=== PATIENT | female | born 1965 | race Caucasian/White ===

== ENCOUNTER 2017-10-16 12:10 | Emergency (ER) | payer MEDICAID ==
[~2017-10-16] VITALS: Ht 165.1 cm; Wt 136.1 kg
[~2017-10-16 12:10] MED LIST: FENO160T8 PO; GABA300C10 PO; GLIM4TAB42 PO; INSLANTI SC; LEVEMIR SC; MONT10TA23 PO; PIOG30TA37 OR; ROPI0.5T18 PO; [UNRECOGNIZED DRUG - OTHER]
[2017-10-16 14:38] VITALS: BP 151/80
== END 2017-10-16 16:12 | disposition home or self-care (01) ==
LOC: ER 12:10
DX: M79.642 Pain in left hand (principal); K21.9 Gastro-esophageal reflux disease without esophagitis; E78.5 Hyperlipidemia, unspecified; I10 Essential (primary) hypertension; E11.9 Type 2 diabetes mellitus without complications; J45.909 Unspecified asthma, uncomplicated; I25.10 Atherosclerotic heart disease of native coronary artery without angina pectoris; E66.01 Morbid (severe) obesity due to excess calories; Z68.42 Body mass index [BMI] 45.0-49.9, adult; Z90.49 Acquired absence of other specified parts of digestive tract; W01.0XXA Fall on same level from slipping, tripping and stumbling without subsequent striking against object, initial encounter; Y93.89 Activity, other specified; Y92.89 Other specified places as the place of occurrence of the external cause; Y99.8 Other external cause status
CPT/HCPCS: 73130

== ENCOUNTER 2018-04-19 14:46 | Emergency (ER) | payer MEDICAID ==
[~2018-04-19] VITALS: Ht 165.1 cm; Wt 138.3 kg
[2018-04-19 15:11] VITALS: BP 138/68
[2018-04-19] MEDS ORDERED: KETOROLAC TROMETH 60MG/2ML VIAL IM ONE (16:15)
== END 2018-04-19 16:41 | disposition home or self-care (01) ==
LOC: ER 14:46
DX: S93.491A Sprain of other ligament of right ankle, initial encounter (principal); J45.909 Unspecified asthma, uncomplicated; I25.10 Atherosclerotic heart disease of native coronary artery without angina pectoris; E11.9 Type 2 diabetes mellitus without complications; K21.9 Gastro-esophageal reflux disease without esophagitis; E78.5 Hyperlipidemia, unspecified; I10 Essential (primary) hypertension; Z90.49 Acquired absence of other specified parts of digestive tract; Z88.1 Allergy status to other antibiotic agents; Z79.4 Long term (current) use of insulin; Z79.899 Other long term (current) drug therapy; X50.1XXA Overexertion from prolonged static or awkward postures, initial encounter; Y93.54 Activity, bowling; Y99.8 Other external cause status; Y92.89 Other specified places as the place of occurrence of the external cause
CPT/HCPCS: 73610; 96372; 99284; J1885

== ENCOUNTER 2018-04-28 15:38 | Inpatient (IN) | payer MEDICAID ==
[~2018-04-28] VITALS: Ht 165.1 cm; Wt 144.9 kg
[2018-04-28] MEDS ORDERED: SODIUM CHLORIDE 0.9% 1,000 ML IV ONE ×2 (16:12→21:00)
[2018-04-28] MEDS ORDERED: InsuLIN REG 1unit/0.01ml Soln (100units/ml) IV ONE (16:15)
[2018-04-28 16:53] LABS: Basophils # (auto) 0 uL; Eosinophils # (auto) 0.1 uL; Eosinophils % (auto) 2.7 % (0.0-7.0); Hematocrit 41.4 % (36.0-46.0); Hemoglobin 13.6 g/dL (12.2-16.2); Lymphocytes # (auto) 1.3 uL; Lymphocytes % (auto) 25.3 % (10.0-50.0); Mean Corpuscular Hemoglobin 28.8 pg (28.0-32.0); Mean Corpuscular Hgb Conc. 32.8 g/dL (32.0-36.0); Mean Corpuscular Volume 87.9 fL (80.0-100.0); Monocytes # (auto) 0.4 uL; Monocytes % (auto) 8.8 % (0.0-12.0); Neutrophils # (auto) 3.1 uL; Neutrophils % (auto) 62.2 % (37.0-80.0); Nucleated Red Blood Cells % 0.2 %; Red Blood Cells 4.71 10^6/uL (4.0-5.20); Red Cell Distribution Width 15.5 % (11.8-14.3); White Blood Cell 4.9 10^3/uL (4.4-10.8)
[2018-04-28] MEDS ORDERED: PIO30T PO (17:02)
[2018-04-28] MEDS ORDERED: CANA100T PO (17:02)
[2018-04-28] MEDS ORDERED: METF-929 PO (17:02)
[2018-04-28] MEDS ORDERED: OMEP20TA PO (17:06)
[2018-04-28] MEDS ORDERED: ALBUAER3 IN (17:06)
[2018-04-28] MEDS ORDERED: BECL80AE9 IN (17:06)
[2018-04-28] MEDS ORDERED: CHOL20009 PO (17:06)
[2018-04-28] MEDS ORDERED: CYCL1TAB18 PO (17:06)
[2018-04-28] MEDS ORDERED: HYDR-531 PO (17:06)
[2018-04-28] MEDS ORDERED: NOVALOG SC (17:08)
[2018-04-28 17:15] LABS: Magnesium 2.1 mg/dL (1.6-2.6)
[2018-04-28 17:16] LABS: Albumin 2.9 g/dL (3.4-5.0); BUN/Creatinine Ratio 7.8; Bilirubin, Total 0.7 mg/dL (0.2-1.0); Calcium 8.4 mg/dL (8.5-10.1); Platelet Count (auto) 118 10^3/uL (140-450); Potassium 3.9 mmol/L (3.5-5.1); Total Protein 8.7 g/dL (6.4-8.2)
[2018-04-28 17:22] LABS: Urine Bacteria NONE SEEN /hpf (None Seen); Urine Blood 2+ /uL (Negative); Urine Specific Gravity 1.027 (1.001-1.035); Urine WBC 20 /hpf (0 - 5)
[2018-04-28] MEDS ORDERED: cefTRIAXone 1GM/10ml IVPUSH 10 ML IV ONE (18:15)
[2018-04-28] MEDS ORDERED: TEMAZEPAM 15 MG CAP PO PRN (21:00)
[2018-04-28] MEDS ORDERED: DEXTROSE (50%) 50ML SYRG IV PRN ×2 (21:00→22:00)
[2018-04-28] MEDS ORDERED: ACETAMINOPHEN 500 MG TAB PO PRN (21:00)
[2018-04-28] MEDS ORDERED: LACTULOSE 20Gm/30ML SOLN PO PRN (21:00)
[2018-04-28] MEDS ORDERED: INSULIN LANTUS (GLARGINE) 1 /0.01ml (100units/ml) SC SCH (22:00)
[2018-04-28] MEDS: MONTELUKAST SODIUM 10 MG TAB PO SCH (22:17)
[2018-04-28] MEDS: HYDROcodone-ACET 5/325MG TAB PO PRN (22:17)
[2018-04-28] MEDS: GABAPENTIN 300 MG CAP PO SCH (22:17)
[2018-04-28 23:45] VITALS: BP 148/79
[2018-04-29] VITALS (7 sets, daily range): BP systolic 107–161; BP diastolic 67–83
[2018-04-29] MEDS ORDERED: InsuLIN REG 1unit/0.01ml Soln (100units/ml) SC SCH
[2018-04-29] MEDS: InsuLIN REG 1unit/0.01ml Soln (100units/ml) SC SCH ×6 (00:01→21:40)
[2018-04-29] MEDS: ACCU-CHEK COMFORT CURVE STRIP VI SCH ×8 (00:01→21:20)
[2018-04-29] MEDS ORDERED: OME20T PO (01:06)
[2018-04-29] MEDS ORDERED: INSUINJ18 SC (01:06)
[2018-04-29] MEDS ORDERED: MONT10TA34 PO (01:06)
[2018-04-29] MEDS ORDERED: ALBUTEROL SULF 2.5 MG/0.5ML(0.5%) NEB SOLN NEB PRN (01:30)
[2018-04-29] MEDS: GABAPENTIN 300 MG CAP PO SCH ×3 (05:09→21:20)
[2018-04-29 06:40] LABS: Basophils # (auto) 0 uL; Basophils % (auto) 0.6 % (0.0-2.0); Eosinophils # (auto) 0.2 uL; Eosinophils % (auto) 3.1 % (0.0-7.0); Hematocrit 38.6 % (36.0-46.0); Hemoglobin 12.6 g/dL (12.2-16.2); Lymphocytes # (auto) 1.6 uL; Lymphocytes % (auto) 31.5 % (10.0-50.0); Mean Corpuscular Hemoglobin 28.8 pg (28.0-32.0); Mean Corpuscular Hgb Conc. 32.8 g/dL (32.0-36.0); Mean Corpuscular Volume 87.8 fL (80.0-100.0); Monocytes # (auto) 0.4 uL; Monocytes % (auto) 7.1 % (0.0-12.0); Neutrophils # (auto) 2.9 uL; Neutrophils % (auto) 57.7 % (37.0-80.0); Nucleated Red Blood Cells % 0.1 %; Platelet Count (auto) 96 10^3/uL (140-450); Red Blood Cells 4.39 10^6/uL (4.0-5.20); Red Cell Distribution Width 15.5 % (11.8-14.3)
[2018-04-29 06:47] LABS: BUN/Creatinine Ratio 12.5; Calcium 8.3 mg/dL (8.5-10.1); Potassium 3.9 mmol/L (3.5-5.1)
[2018-04-29] MEDS ORDERED: cefTRIAXone 1GM/10ml IVPUSH 10 ML IV SCH (09:00)
[2018-04-29] MEDS: FAMOTIDINE 20 MG TAB PO SCH (10:00)
[2018-04-29] MEDS: DULoxetine HCL 30 MG CAP PO SCH (10:30)
[2018-04-29] MEDS: HYDROcodone-ACET 5/325MG TAB PO PRN ×3 (12:04→21:21)
[2018-04-29] MEDS: MONTELUKAST SODIUM 10 MG TAB PO SCH (21:20)
[2018-04-29] MEDS ORDERED: INSULIN LANTUS (GLARGINE) 1 /0.01ml (100units/ml) SC SCH (22:00)
[2018-04-30] MEDS: InsuLIN REG 1unit/0.01ml Soln (100units/ml) SC SCH ×6 (00:59→20:00)
[2018-04-30] MEDS: ACCU-CHEK COMFORT CURVE STRIP VI SCH ×6 (00:59→20:12)
[2018-04-30] MEDS: HYDROcodone-ACET 10/325MG TAB PO PRN ×2 (00:59→12:00)
[2018-04-30 05:23] VITALS: BP 161/93
[2018-04-30] MEDS: GABAPENTIN 300 MG CAP PO SCH ×2 (06:24→14:31)
[2018-04-30] MEDS ORDERED: INSULIN LANTUS (GLARGINE) 1 /0.01ml (100units/ml) SC SCH (07:00)
[2018-04-30 08:55] VITALS: BP 129/94
[2018-04-30] MEDS: DULoxetine HCL 30 MG CAP PO SCH (10:35)
[2018-04-30] MEDS: FAMOTIDINE 20 MG TAB PO SCH (10:36)
[2018-04-30 13:04] VITALS: BP 148/99
[2018-04-30] MEDS ORDERED: cefTRIAXone 1GM/10ml IVPUSH 10 ML IV SCH (14:48)
[2018-04-30] MEDS ORDERED: cefTRIAXone 1GM/10ml IVPUSH 10 ML IV ONE (15:15)
[2018-04-30] MEDS ORDERED: cloNIDine HCL 0.1 MG TAB PO PRN (15:15)
[2018-04-30] MEDS ORDERED: SODIUM CHLORIDE 0.9% 1,000 ML IV SCH (15:15)
[2018-04-30 17:21] VITALS: BP 127/71
[2018-04-30 21:41] VITALS: BP 142/72
== END 2018-04-30 21:50 | disposition left against medical advice (07) | DRG 463 ==
LOC: ER 15:38 → EDBD 15:38 → OVERFLOW 15:39 → WEST WING 23:30
PROVIDERS: ADMIT Nurse Practitioner Family; ATTEND Family Medicine
DX: N39.0 Urinary tract infection, site not specified (principal); E11.40 Type 2 diabetes mellitus with diabetic neuropathy, unspecified; E44.0 Moderate protein-calorie malnutrition; K76.0 Fatty (change of) liver, not elsewhere classified; E11.65 Type 2 diabetes mellitus with hyperglycemia; E66.01 Morbid (severe) obesity due to excess calories; G25.81 Restless legs syndrome; K21.9 Gastro-esophageal reflux disease without esophagitis; Z88.8 Allergy status to other drugs, medicaments and biological substances; Z68.34 Body mass index [BMI] 34.0-34.9, adult; F32.9 Major depressive disorder, single episode, unspecified; I10 Essential (primary) hypertension; J45.909 Unspecified asthma, uncomplicated; Z79.4 Long term (current) use of insulin; Z79.899 Other long term (current) drug therapy; Z81.8 Family history of other mental and behavioral disorders; Z82.0 Family history of epilepsy and other diseases of the nervous system; Z82.49 Family history of ischemic heart disease and other diseases of the circulatory system; Z83.3 Family history of diabetes mellitus; Z85.528 Personal history of other malignant neoplasm of kidney; Z90.5 Acquired absence of kidney; Z96.652 Presence of left artificial knee joint
CPT/HCPCS: 36415; 80048; 80053; 81001; 82010; 82962; 83036; 83735; 84484; 85025; 87086; 87088; 87147; 87186; 93005; 94761; 96361; 96372; 96374; 96375; 96376; J0696; J1815

== ENCOUNTER 2018-05-12 16:56 | Emergency (ER) | payer MEDICAID ==
[~2018-05-12] VITALS: Ht 165.1 cm; Wt 136.1 kg
[~2018-05-12 16:56] MED LIST changes: +ALBUAER3 IN; +BECL80AE9 IN; +CANA100T PO; +CHOL20009 PO; +CYCL1TAB18 PO; -FENO160T8 PO; -GLIM4TAB42 PO; +HYDR-531 PO; +INSUINJ18 SC; -LEVEMIR SC; +METF-929 PO; -MONT10TA23 PO; +MONT10TA34 PO; +OME20T PO; +PIO30T PO; -PIOG30TA37 OR; -[UNRECOGNIZED DRUG - OTHER]
[2018-05-12] MEDS ORDERED: SODIUM CHLORIDE 0.9% 1,000 ML IV ONE (17:21)
[2018-05-12] MEDS ORDERED: METOCLOPRAMIDE HCL 5MG/ml INJ 2ml VIAL IV ONE (17:30)
[2018-05-12] MEDS ORDERED: MORPHINE SULFATE 4 MG/ML SYR/VIAL IV ONE (17:30)
[2018-05-12 18:02] LABS: Basophils # (auto) 0 uL; Basophils % (auto) 0.6 % (0.0-2.0); Eosinophils # (auto) 0.2 uL; Eosinophils % (auto) 3.3 % (0.0-7.0); Hematocrit 41.6 % (36.0-46.0); Hemoglobin 13.8 g/dL (12.2-16.2); Lymphocytes # (auto) 2.1 uL; Lymphocytes % (auto) 30.2 % (10.0-50.0); Mean Corpuscular Hemoglobin 28.6 pg (28.0-32.0); Mean Corpuscular Hgb Conc. 33.2 g/dL (32.0-36.0); Mean Corpuscular Volume 86.2 fL (80.0-100.0); Monocytes # (auto) 0.5 uL; Monocytes % (auto) 7.2 % (0.0-12.0); Neutrophils % (auto) 58.7 % (37.0-80.0); Nucleated Red Blood Cells % 0.1 %; Platelet Count (auto) 160 10^3/uL (140-450); Red Blood Cells 4.83 10^6/uL (4.0-5.20); Red Cell Distribution Width 15.6 % (11.8-14.3); White Blood Cell 6.8 10^3/uL (4.4-10.8)
[2018-05-12 18:20] LABS: Alanine Aminotransferase 34 U/L (13-56); Alkaline Phosphatase 165 U/L (45-117); Anion Gap 9 (5-15); Aspartate Aminotransferase 46 U/L (15-37); BUN/Creatinine Ratio 11.9; Bilirubin, Total 0.8 mg/dL (0.2-1.0); Blood Urea Nitrogen 12 mg/dL (7-18); Calcium 8.8 mg/dL (8.5-10.1); Carbon Dioxide 24 mmol/L (21-32); Chloride 104 mmol/L (98-107); GFR African American 74 mL/min; GFR Non-African American 61 mL/min; Glucose 94 mg/dL (74-106); Magnesium 2.4 mg/dL (1.6-2.6); Potassium 4.4 mmol/L (3.5-5.1); Sodium 137 mmol/L (136-145); Total Protein 8.6 g/dL (6.4-8.2)
[2018-05-12 20:46] VITALS: BP 130/90
== END 2018-05-12 22:10 | disposition home or self-care (01) ==
LOC: ER 16:56 → EDBD 16:56 → ER 22:09
DX: R51 Headache (principal); M54.2 Cervicalgia; J45.909 Unspecified asthma, uncomplicated; I25.10 Atherosclerotic heart disease of native coronary artery without angina pectoris; E11.9 Type 2 diabetes mellitus without complications; K21.9 Gastro-esophageal reflux disease without esophagitis; E78.5 Hyperlipidemia, unspecified; I10 Essential (primary) hypertension; Z90.49 Acquired absence of other specified parts of digestive tract; Z88.1 Allergy status to other antibiotic agents; Z79.4 Long term (current) use of insulin; Z79.899 Other long term (current) drug therapy; V00.148A Other scooter (nonmotorized) accident, initial encounter; Y93.89 Activity, other specified; Y99.8 Other external cause status; Y92.89 Other specified places as the place of occurrence of the external cause
CPT/HCPCS: 36415; 70450; 72125; 72131; 80053; 83735; 84484; 85025; 93005; 96374; 96375; 99285; J2270; J2765; J7030

== ENCOUNTER 2018-08-29 22:39 | Emergency (ER) | payer MEDICAID ==
[~2018-08-29] VITALS: Ht 165.1 cm; Wt 133.4 kg
[2018-08-29 23:05] LABS: Basophils # (auto) 0.1 uL; Basophils % (auto) 1.3 % (0.0-2.0); Eosinophils # (auto) 0.1 uL; Eosinophils % (auto) 1.9 % (0.0-7.0); Hematocrit 44.9 % (36.0-46.0); Hemoglobin 14.6 g/dL (12.2-16.2); Lymphocytes # (auto) 1.8 uL; Lymphocytes % (auto) 27.8 % (10.0-50.0); Mean Corpuscular Hemoglobin 28.6 pg (28.0-32.0); Mean Corpuscular Hgb Conc. 32.6 g/dL (32.0-36.0); Mean Corpuscular Volume 87.9 fL (80.0-100.0); Monocytes # (auto) 0.5 uL; Monocytes % (auto) 7.8 % (0.0-12.0); Neutrophils % (auto) 61.2 % (37.0-80.0); Platelet Count (auto) 129 10^3/uL (140-450); Red Blood Cells 5.11 10^6/uL (4.0-5.20); Red Cell Distribution Width 15.3 % (11.8-14.3); White Blood Cell 6.6 10^3/uL (4.4-10.8)
[2018-08-29 23:21] LABS: Albumin 3.2 g/dL (3.4-5.0); Calcium 9.1 mg/dL (8.5-10.1); Magnesium 1.9 mg/dL (1.6-2.6); Potassium 3.9 mmol/L (3.5-5.1)
[2018-08-29 23:23] LABS: Total Protein 8.7 g/dL (6.4-8.2)
[2018-08-29 23:27] LABS: BUN/Creatinine Ratio 10.1
[2018-08-29 23:34] LABS: Bilirubin, Total 0.7 mg/dL (0.2-1.0)
[2018-08-30] MEDS ORDERED: SODIUM CHLORIDE 0.9% 1,000 ML IV ONE ×2 (01:30→04:00)
[2018-08-30] MEDS ORDERED: InsuLIN REG 1unit/0.01ml Soln (100units/ml) IV ONE ×3 (01:30→06:15)
[2018-08-30] MEDS ORDERED: diphenhdrAMINE HCL 50 MG/1 ML VL IV ONE ×2 (02:45→05:00)
[2018-08-30 03:02] LABS: Urine Blood 2+ /uL (Negative); Urine Specific Gravity 1.032 (1.001-1.035); Urine WBC 14 /hpf (0 - 5)
[2018-08-30 03:08] LABS: Urine Bacteria MODERATE /hpf (None Seen); Urine Budding Yeast Many /hpf (None Seen)
[2018-08-30] MEDS ORDERED: BACLOFEN 10 MG TAB PO ONE (05:00)
[2018-08-30 06:39] VITALS: BP 135/59
== END 2018-08-30 07:17 | disposition home or self-care (01) ==
LOC: ER 22:41
DX: E11.65 Type 2 diabetes mellitus with hyperglycemia (principal); B37.49 Other urogenital candidiasis; R25.2 Cramp and spasm; F41.9 Anxiety disorder, unspecified; J45.909 Unspecified asthma, uncomplicated; K21.9 Gastro-esophageal reflux disease without esophagitis; E78.5 Hyperlipidemia, unspecified; F12.10 Cannabis abuse, uncomplicated; I25.10 Atherosclerotic heart disease of native coronary artery without angina pectoris; Z90.49 Acquired absence of other specified parts of digestive tract; Z88.1 Allergy status to other antibiotic agents; Z79.4 Long term (current) use of insulin
CPT/HCPCS: 36415; 80053; 81001; 81025; 82010; 82962; 83735; 85025; 96361; 96374; 96375; 96376; 99283; J1200; J1815; J7030

== ENCOUNTER 2018-09-20 15:07 | Emergency (ER) | payer MEDICAID ==
[~2018-09-20] VITALS: Ht 165.1 cm; Wt 129.3 kg
[2018-09-20 16:49] LABS: Urine Bacteria NONE SEEN /hpf (None Seen); Urine Blood 2+ /uL (Negative); Urine Mucus FEW (None Seen); Urine Specific Gravity 1.024 (1.001-1.035); Urine WBC 55 /hpf (0 - 5)
[2018-09-20 18:10] LABS: Basophils # (auto) 0 uL; Basophils % (auto) 0.5 % (0.0-2.0); Eosinophils # (auto) 0.1 uL; Eosinophils % (auto) 2.2 % (0.0-7.0); Hematocrit 45.2 % (36.0-46.0); Hemoglobin 14.8 g/dL (12.2-16.2); Lymphocytes # (auto) 1.8 uL; Lymphocytes % (auto) 26.2 % (10.0-50.0); Mean Corpuscular Hemoglobin 28.6 pg (28.0-32.0); Mean Corpuscular Hgb Conc. 32.7 g/dL (32.0-36.0); Mean Corpuscular Volume 87.5 fL (80.0-100.0); Monocytes # (auto) 0.5 uL; Monocytes % (auto) 7.7 % (0.0-12.0); Neutrophils # (auto) 4.3 uL; Neutrophils % (auto) 63.4 % (37.0-80.0); Nucleated Red Blood Cells % 0.1 %; Platelet Count (auto) 122 10^3/uL (140-450); Red Blood Cells 5.16 10^6/uL (4.0-5.20); Red Cell Distribution Width 15.2 % (11.8-14.3); White Blood Cell 6.8 10^3/uL (4.4-10.8)
[2018-09-20 18:15] LABS: Albumin 3.2 g/dL (3.4-5.0); Calcium 10.3 mg/dL (8.5-10.1); Potassium 4.3 mmol/L (3.5-5.1)
[2018-09-20 18:24] LABS: BUN/Creatinine Ratio 13.2; Bilirubin, Total 0.7 mg/dL (0.2-1.0); Total Protein 8.8 g/dL (6.4-8.2)
[2018-09-20] MEDS ORDERED: SODIUM CHLORIDE 0.9% 1,000 ML IVB ONE (19:04)
[2018-09-20] MEDS ORDERED: cefTRIAXone 1GM/50ML D5W 50 ML IV ONE (19:15)
[2018-09-20] MEDS ORDERED: InsuLIN REG 1unit/0.01ml Soln (100units/ml) SC ONE (21:15)
[2018-09-20] MEDS ORDERED: ONDANSETRON HCL 4 MG/2 ML VIAL IV ONE (21:30)
[2018-09-21 00:07] VITALS: BP 135/87
== END 2018-09-21 00:59 | disposition home or self-care (01) ==
LOC: ER 15:17
DX: N92.0 Excessive and frequent menstruation with regular cycle (principal); N39.0 Urinary tract infection, site not specified; E11.65 Type 2 diabetes mellitus with hyperglycemia; J45.909 Unspecified asthma, uncomplicated; E78.5 Hyperlipidemia, unspecified; I10 Essential (primary) hypertension; Z90.49 Acquired absence of other specified parts of digestive tract; Z90.89 Acquired absence of other organs; Z79.4 Long term (current) use of insulin; Z79.899 Other long term (current) drug therapy
CPT/HCPCS: 36415; 76830; 76856; 80053; 81001; 82962; 85025; 86850; 86900; 86901; 93005; 94761; 96365; 96375; 99284; J0696; J2405; J7030

== ENCOUNTER 2018-10-25 13:29 | Emergency (ER) | payer MEDICAID ==
[~2018-10-25] VITALS: Ht 165.1 cm; Wt 129.3 kg
[2018-10-25 15:30] VITALS: BP 135/72
== END 2018-10-25 15:36 | disposition home or self-care (01) ==
LOC: ER 13:29
DX: J20.9 Acute bronchitis, unspecified (principal); K21.9 Gastro-esophageal reflux disease without esophagitis; E78.5 Hyperlipidemia, unspecified; I10 Essential (primary) hypertension; F12.90 Cannabis use, unspecified, uncomplicated; E11.9 Type 2 diabetes mellitus without complications; Z90.49 Acquired absence of other specified parts of digestive tract
CPT/HCPCS: 71046; 93005

== ENCOUNTER 2019-03-19 12:39 | Emergency (ER) | payer MEDICAID ==
[~2019-03-19] VITALS: Ht 165.1 cm; Wt 115.7 kg
[2019-03-19 13:38] LABS: Basophils # (auto) 0 uL; Basophils % (auto) 0.7 % (0.0-2.0); Eosinophils # (auto) 0.1 uL; Eosinophils % (auto) 1.6 % (0.0-7.0); Hematocrit 47.1 % (36.0-46.0); Hemoglobin 15.8 g/dL (12.2-16.2); Lymphocytes # (auto) 1.6 uL; Lymphocytes % (auto) 27.6 % (10.0-50.0); Mean Corpuscular Hgb Conc. 33.6 g/dL (32.0-36.0); Mean Corpuscular Volume 86.4 fL (80.0-100.0); Monocytes # (auto) 0.3 uL; Monocytes % (auto) 6.2 % (0.0-12.0); Neutrophils # (auto) 3.6 uL; Neutrophils % (auto) 63.9 % (37.0-80.0); Platelet Count (auto) 126 10^3/uL (140-450); Red Blood Cells 5.45 10^6/uL (4.0-5.20); Red Cell Distribution Width 14.1 % (11.8-14.3); White Blood Cell 5.6 10^3/uL (4.4-10.8)
[2019-03-19 13:53] LABS: Albumin 3.5 g/dL (3.4-5.0); Anion Gap 9 (5-15); Calcium 9.2 mg/dL (8.5-10.1); Carbon Dioxide 25 mmol/L (21-32); Chloride 102 mmol/L (98-107); Magnesium 2.3 mg/dL (1.6-2.6); Potassium 4.6 mmol/L (3.5-5.1); Sodium 136 mmol/L (136-145)
[2019-03-19 13:59] LABS: Alanine Aminotransferase 45 U/L (13-56); Alkaline Phosphatase 269 U/L (45-117); Aspartate Aminotransferase 45 U/L (15-37); BUN/Creatinine Ratio 10.4; Bilirubin, Total 0.8 mg/dL (0.2-1.0); Blood Urea Nitrogen 11 mg/dL (7-18); GFR African American 70 mL/min; GFR Non-African American 58 mL/min; Total Protein 8.8 g/dL (6.4-8.2)
[2019-03-19 14:01] LABS: Glucose 407 mg/dL (74-106)
[2019-03-19 14:27] LABS: Urine Bacteria FEW /hpf (None Seen); Urine Blood TRACE /uL (Negative); Urine Mucus FEW (None Seen); Urine Specific Gravity 1.039 (1.001-1.035); Urine WBC 58 /hpf (0 - 5)
[2019-03-19] MEDS: SODIUM CHLORIDE 0.9% 1,000 ML IV ONE ×2 (17:18)
[2019-03-19] MEDS: LEVOFLOXACIN 500MG 100 ML IV ONE (17:38)
[2019-03-19] MEDS: InsuLIN REG 1unit/0.01ml Soln (100units/ml) IV ONE (17:45)
[2019-03-19] MEDS: SODIUM CHLORIDE 0.9% 500 ML IV ONE (19:30)
[2019-03-19] MEDS: ONDANSETRON HCL 4 MG/2 ML VIAL IV ONE (19:30)
[2019-03-19 20:33] VITALS: BP 155/69
== END 2019-03-19 20:37 | disposition home or self-care (01) ==
LOC: ER 12:42
DX: E11.65 Type 2 diabetes mellitus with hyperglycemia (principal); N28.9 Disorder of kidney and ureter, unspecified; N39.0 Urinary tract infection, site not specified; E11.21 Type 2 diabetes mellitus with diabetic nephropathy; E66.01 Morbid (severe) obesity due to excess calories; I10 Essential (primary) hypertension; J45.909 Unspecified asthma, uncomplicated; K21.9 Gastro-esophageal reflux disease without esophagitis; Z90.49 Acquired absence of other specified parts of digestive tract; Z68.41 Body mass index [BMI] 40.0-44.9, adult; Z79.4 Long term (current) use of insulin
CPT/HCPCS: 36415; 71046; 80053; 81001; 82962; 83735; 84443; 85025; 93005; 96361; 96365; 96375; 99284; J1815; J1956; J2405; J7030; J7040

== ENCOUNTER 2019-03-21 17:45 | Emergency (ER) | payer MEDICAID ==
[~2019-03-21] VITALS: Ht 165.1 cm; Wt 115.2 kg
[2019-03-21 18:40] LABS: Albumin 2.9 g/dL (3.4-5.0); Amylase 50 U/L (25-115); Anion Gap 9 (5-15); Blood Urea Nitrogen 15 mg/dL (7-18); Calcium 8.5 mg/dL (8.5-10.1); Carbon Dioxide 24 mmol/L (21-32); Chloride 110 mmol/L (98-107); Glucose 84 mg/dL (74-106); Lipase 140 U/L (73-393); Magnesium 1.9 mg/dL (1.6-2.6); Potassium 3.9 mmol/L (3.5-5.1); Sodium 143 mmol/L (136-145)
[2019-03-21 18:42] LABS: Alanine Aminotransferase 38 U/L (13-56); Aspartate Aminotransferase 50 U/L (15-37); BUN/Creatinine Ratio 17.4; GFR African American 89 mL/min; GFR Non-African American 74 mL/min
[2019-03-21 18:47] LABS: Alkaline Phosphatase 205 U/L (45-117); Bilirubin, Total 0.5 mg/dL (0.2-1.0); Total Protein 7.6 g/dL (6.4-8.2)
[2019-03-21 18:55] LABS: Basophils # (auto) 0 uL; Basophils % (auto) 0.5 % (0.0-2.0); Eosinophils # (auto) 0.1 uL; Eosinophils % (auto) 1.9 % (0.0-7.0); Hematocrit 44.9 % (36.0-46.0); Hemoglobin 14.7 g/dL (12.2-16.2); Lymphocytes # (auto) 1.8 uL; Lymphocytes % (auto) 32.1 % (10.0-50.0); Mean Corpuscular Hemoglobin 28.3 pg (28.0-32.0); Mean Corpuscular Hgb Conc. 32.7 g/dL (32.0-36.0); Mean Corpuscular Volume 86.6 fL (80.0-100.0); Monocytes # (auto) 0.4 uL; Monocytes % (auto) 6.2 % (0.0-12.0); Neutrophils # (auto) 3.4 uL; Neutrophils % (auto) 59.3 % (37.0-80.0); Nucleated Red Blood Cells % 0.2 %; Platelet Count (auto) 123 10^3/uL (140-450); Red Blood Cells 5.18 10^6/uL (4.0-5.20); Red Cell Distribution Width 14.3 % (11.8-14.3); White Blood Cell 5.7 10^3/uL (4.4-10.8)
[2019-03-21] MEDS ORDERED: KETOROLAC TROMETH 15 mg/ml 1ML VL IV ONE (20:00)
[2019-03-21] MEDS ORDERED: ONDANSETRON HCL 4 MG/2 ML VIAL IV ONE (20:00)
[2019-03-21] MEDS ORDERED: SODIUM CHLORIDE 0.9% 1,000 ML IV ONE (20:15)
[2019-03-21] MEDS ORDERED: IOHEXOL 300 MG/ML 100ML BOTTLE IJ ONE (20:24)
[2019-03-21 21:09] LABS: Urine Bacteria FEW /hpf (None Seen); Urine Blood TRACE /uL (Negative); Urine Mucus FEW (None Seen); Urine Specific Gravity 1.029 (1.001-1.035); Urine WBC 33 /hpf (0 - 5)
[2019-03-21 22:58] VITALS: BP 119/48
== END 2019-03-21 23:53 | disposition home or self-care (01) ==
LOC: ER 17:52
DX: N39.0 Urinary tract infection, site not specified (principal); K74.60 Unspecified cirrhosis of liver; K42.9 Umbilical hernia without obstruction or gangrene; J45.909 Unspecified asthma, uncomplicated; E11.9 Type 2 diabetes mellitus without complications; K21.9 Gastro-esophageal reflux disease without esophagitis; E78.00 Pure hypercholesterolemia, unspecified; I10 Essential (primary) hypertension; Z90.49 Acquired absence of other specified parts of digestive tract; Z90.89 Acquired absence of other organs; Z88.8 Allergy status to other drugs, medicaments and biological substances; Z79.4 Long term (current) use of insulin; Z79.899 Other long term (current) drug therapy
CPT/HCPCS: 36415; 74177; 80053; 81001; 82150; 82962; 83690; 83735; 84484; 85025; 93005; 96374; 96375; 99284; J1885; J2405; J7030; Q9967

== ENCOUNTER 2019-10-24 21:59 | Inpatient (IN) | payer MEDICAID ==
[~2019-10-24] VITALS: Ht 165.1 cm; Wt 135.1 kg
[2019-10-24 23:25] LABS: Basophils # (auto) 0 uL; Basophils % (auto) 0.6 % (0.0-2.0); Eosinophils # (auto) 0.1 uL; Eosinophils % (auto) 2.7 % (0.0-7.0); Hematocrit 43.4 % (36.0-46.0); Hemoglobin 14.4 g/dL (12.2-16.2); Lymphocytes # (auto) 1.5 uL; Lymphocytes % (auto) 31.5 % (10.0-50.0); Mean Corpuscular Hemoglobin 28.5 pg (28.0-32.0); Mean Corpuscular Hgb Conc. 33.2 g/dL (32.0-36.0); Mean Corpuscular Volume 85.9 fL (80.0-100.0); Monocytes # (auto) 0.3 uL; Neutrophils # (auto) 2.7 uL; Neutrophils % (auto) 58.2 % (37.0-80.0); Nucleated Red Blood Cells % 0.1 %; Platelet Count (auto) 83 10^3/uL (140-450); Red Blood Cells 5.05 10^6/uL (4.0-5.20); Red Cell Distribution Width 15.1 % (11.8-14.3); White Blood Cell 4.6 10^3/uL (4.4-10.8)
[2019-10-24 23:46] LABS: Alanine Aminotransferase 51 U/L (13-56); Albumin 2.8 g/dL (3.4-5.0); Anion Gap 8 (5-15); Aspartate Aminotransferase 64 U/L (15-37); BUN/Creatinine Ratio 13.7; Blood Urea Nitrogen 18 mg/dL (7-18); Calcium 8.9 mg/dL (8.5-10.1); Carbon Dioxide 24 mmol/L (21-32); Chloride 101 mmol/L (98-107); GFR African American 55 mL/min; GFR Non-African American 45 mL/min; Glucose 339 mg/dL (74-106); Potassium 3.9 mmol/L (3.5-5.1); Sodium 133 mmol/L (136-145)
[2019-10-24 23:48] LABS: Alkaline Phosphatase 262 U/L (45-117); Bilirubin, Total 0.5 mg/dL (0.2-1.0); Total Protein 8.2 g/dL (6.4-8.2)
[2019-10-25] VITALS (8 sets, daily range): BP systolic 114–122; BP diastolic 41–72
[2019-10-25] MEDS ORDERED: MORPHINE SULFATE 4 MG/ML SYR/VIAL IV ONE (02:00)
[2019-10-25] MEDS ORDERED: ONDANSETRON HCL 4 MG/2 ML VIAL IV ONE (02:00)
[2019-10-25 02:40] LABS: Amylase 42 U/L (25-115); Lipase 207 U/L (73-393)
[2019-10-25 02:45] LABS: Urine Bacteria NONE SEEN /hpf (None Seen); Urine Blood 1+ /uL (Negative); Urine Mucus FEW (None Seen); Urine Specific Gravity 1.028 (1.001-1.035); Urine WBC 145 /hpf (0 - 5)
[2019-10-25] MEDS ORDERED: InsuLIN REG 1unit/0.01ml Soln (100units/ml) IV ONE (03:00)
[2019-10-25] MEDS ORDERED: SODIUM CHLORIDE 0.9% 1,000 ML IV ONE (03:00)
[2019-10-25] MEDS ORDERED: LEVOFLOXACIN 500 MG TAB PO ONE (06:30)
[2019-10-25] MEDS ORDERED: ACETAMINOPHEN 325 MG TAB PO PRN (07:45)
[2019-10-25] MEDS ORDERED: MORPHINE SULFATE 4 MG/ML SYR/VIAL IV PRN (07:45)
[2019-10-25] MEDS ORDERED: ONDANSETRON HCL 4 MG/2 ML VIAL IV PRN (07:45)
[2019-10-25] MEDS ORDERED: DEXTROSE (50%) 50ML SYRG IV PRN (07:45)
[2019-10-25] MEDS ORDERED: DOCUSATE SOD 100 MG CAP PO PRN (07:45)
[2019-10-25] MEDS ORDERED: HYDROcodone-ACET 5/325MG TAB PO PRN (07:45)
[2019-10-25] MEDS: ACCU-CHEK COMFORT CURVE STRIP VI SCH ×4 (08:37→20:49)
[2019-10-25] MEDS: InsuLIN REG 1unit/0.01ml Soln (100units/ml) SC SCH ×4 (08:38→20:49)
[2019-10-25] MEDS: SODIUM CHLORIDE 0.9% 1,000 ML IV SCH ×2 (08:39→21:52)
[2019-10-25] MEDS ORDERED: MORPHINE SULF INJ 2 MG/ML SYRINGE 1ML IV PRN (08:45)
[2019-10-25] MEDS ORDERED: cefTRIAXone 1GM/50ML D5W 50 ML IV SCH (10:00)
[2019-10-25] MEDS: cefTRIAXone 1GM/50ML D5W 50 ML IV SCH (10:23)
[2019-10-25] MEDS ORDERED: LORazepam 2MG/ML-1ML VIAL IV PRN (18:45)
[2019-10-25 19:11] LABS: Cholesterol 197 mg/dL (< 200)
[2019-10-25 19:14] LABS: HDL Cholesterol 48 mg/dL (40-59); LDL Cholesterol 123 mg/dL (< 100); Triglycerides 172 mg/dL (< 150)
[2019-10-25] MEDS: PRAMIPEXOLE DIHYDROCHLORIDE MO 0.25 MG TAB PO SCH (22:33)
[2019-10-25] MEDS: ATORVASTATIN 20 MG TAB PO SCH (22:33)
[2019-10-26] MEDS: ACCU-CHEK COMFORT CURVE STRIP VI SCH ×6 (01:11→20:13)
[2019-10-26] MEDS: InsuLIN REG 1unit/0.01ml Soln (100units/ml) SC SCH ×6 (01:11→20:14)
[2019-10-26 05:15] VITALS: BP 103/50
[2019-10-26 06:35] LABS: Basophils # (auto) 0 uL; Basophils % (auto) 0.6 % (0.0-2.0); Eosinophils # (auto) 0.1 uL; Hematocrit 38.7 % (36.0-46.0); Hemoglobin 12.9 g/dL (12.2-16.2); Lymphocytes # (auto) 1.2 uL; Lymphocytes % (auto) 35.9 % (10.0-50.0); Mean Corpuscular Hemoglobin 28.3 pg (28.0-32.0); Mean Corpuscular Hgb Conc. 33.3 g/dL (32.0-36.0); Mean Corpuscular Volume 84.9 fL (80.0-100.0); Monocytes # (auto) 0.3 uL; Monocytes % (auto) 7.3 % (0.0-12.0); Neutrophils # (auto) 1.8 uL; Neutrophils % (auto) 53.2 % (37.0-80.0); Platelet Count (auto) 71 10^3/uL (140-450); Red Blood Cells 4.55 10^6/uL (4.0-5.20); Red Cell Distribution Width 14.8 % (11.8-14.3); White Blood Cell 3.4 10^3/uL (4.4-10.8)
[2019-10-26 07:11] LABS: BUN/Creatinine Ratio 23.1; Calcium 8.5 mg/dL (8.5-10.1)
[2019-10-26 08:08] LABS: % Iron Saturation 25.6 % (15-50)
[2019-10-26 09:00] VITALS: BP 155/84
[2019-10-26] MEDS: ASPirin-EC 81 mg tab PO SCH (09:46)
[2019-10-26] MEDS: cefTRIAXone 1GM/50ML D5W 50 ML IV SCH (09:46)
[2019-10-26] MEDS: SODIUM CHLORIDE 0.9% 1,000 ML IV SCH (12:17)
[2019-10-26 12:30] VITALS: BP 154/81
[2019-10-26 17:00] VITALS: BP 155/71
[2019-10-26] MEDS: PRAMIPEXOLE DIHYDROCHLORIDE MO 0.25 MG TAB PO SCH (21:54)
[2019-10-26] MEDS: ATORVASTATIN 20 MG TAB PO SCH (21:54)
[2019-10-26] MEDS: INSULIN LANTUS (GLARGINE) 1 /0.01ml (100units/ml) SC SCH (21:55)
[2019-10-26 22:00] VITALS: BP 136/74
[2019-10-27] MEDS: ACCU-CHEK COMFORT CURVE STRIP VI SCH ×5 (00:01→17:07)
[2019-10-27] MEDS: InsuLIN REG 1unit/0.01ml Soln (100units/ml) SC SCH ×5 (00:02→17:07)
[2019-10-27] MEDS: SODIUM CHLORIDE 0.9% 1,000 ML IV SCH ×2 (02:11→17:08)
[2019-10-27] MEDS: INSULIN LANTUS (GLARGINE) 1 /0.01ml (100units/ml) SC SCH (06:41)
[2019-10-27 09:00] VITALS: BP 134/84
[2019-10-27] MEDS: ASPirin-EC 81 mg tab PO SCH (10:00)
[2019-10-27] MEDS: cefTRIAXone 1GM/50ML D5W 50 ML IV SCH (10:00)
[2019-10-27 13:03] VITALS: BP 112/69
[2019-10-27 16:41] VITALS: BP 126/75
== END 2019-10-27 19:58 | disposition home or self-care (01) | DRG 463 ==
LOC: ER 21:59 → OVERFLOW 22:00 → EAST 10-25 10:09
PROVIDERS: ADMIT Hospitalist; ATTEND Internal Medicine
DX: N39.0 Urinary tract infection, site not specified (principal); E11.42 Type 2 diabetes mellitus with diabetic polyneuropathy; E11.65 Type 2 diabetes mellitus with hyperglycemia; R53.1 Weakness; G25.81 Restless legs syndrome; G47.10 Hypersomnia, unspecified; E66.01 Morbid (severe) obesity due to excess calories; G83.20 Monoplegia of upper limb affecting unspecified side; G40.909 Epilepsy, unspecified, not intractable, without status epilepticus; G45.9 Transient cerebral ischemic attack, unspecified; G47.00 Insomnia, unspecified; M54.9 Dorsalgia, unspecified; G89.29 Other chronic pain; G47.33 Obstructive sleep apnea (adult) (pediatric); R32 Unspecified urinary incontinence; Z79.4 Long term (current) use of insulin; Z88.1 Allergy status to other antibiotic agents; Z79.899 Other long term (current) drug therapy; Z79.84 Long term (current) use of oral hypoglycemic drugs; Z79.51 Long term (current) use of inhaled steroids; Z90.49 Acquired absence of other specified parts of digestive tract; Z82.49 Family history of ischemic heart disease and other diseases of the circulatory system; Z82.61 Family history of arthritis; Z82.1 Family history of blindness and visual loss; Z81.8 Family history of other mental and behavioral disorders; Z83.3 Family history of diabetes mellitus; Z83.42 Family history of familial hypercholesterolemia; Z82.0 Family history of epilepsy and other diseases of the nervous system; Z80.9 Family history of malignant neoplasm, unspecified; Z68.42 Body mass index [BMI] 45.0-49.9, adult
CPT/HCPCS: 36415; 70450; 70551; 71045; 72125; 74176; 80048; 80053; 80061; 81001; 82150; 82728; 82962; 83036; 83540; 83550; 83690; 83735; 84484; 85025; 93306; 93886; 94644; 95819; 96361; 96374; 96375; 97116; 97163; 97530; G0378; J0696; J1815; J2405

== ENCOUNTER 2020-09-24 16:18 | Emergency (ER) | payer MEDICAID ==
[~2020-09-24] VITALS: Ht 165.1 cm; Wt 127.0 kg
[~2020-09-24 16:18] MED LIST changes: +CYCL10TA6 PO; -CYCL1TAB18 PO; -INSLANTI SC; -INSUINJ18 SC; -MONT10TA34 PO; +MONT10TA42 PO
[2020-09-24] MEDS ORDERED: ONDANSETRON HCL 4 MG/2 ML VIAL IV ONE ×2 (17:15→21:00)
[2020-09-24] MEDS ORDERED: SODIUM CHLORIDE 0.9% 1,000 ML IV ONE (17:15)
[2020-09-24] MEDS ORDERED: ACETAMINOPHEN/CODEINE#3 (300/30mg) TAB PO ONE (17:15)
[2020-09-24] MEDS ORDERED: FAMOTIDINE (10MG/ML) 2ML VL IV ONE (17:15)
[2020-09-24 18:22] LABS: Basophils # (auto) 0.1 10 ^3/uL (0-0.2); Basophils % (auto) 1.1 % (0.0-2.0); Eosinophils # (auto) 0.1 10 ^3/uL (0-0.8); Eosinophils % (auto) 1.2 % (0.0-7.0); Hematocrit 41.5 % (36.0-46.0); Hemoglobin 14.1 g/dL (12.2-16.2); Lymphocytes # (auto) 1.6 10 ^3/uL (0.4-5.4); Lymphocytes % (auto) 21.1 % (10.0-50.0); Mean Corpuscular Hemoglobin 29.5 pg (28.0-32.0); Mean Corpuscular Hgb Conc. 33.9 g/dL (32.0-36.0); Mean Corpuscular Volume 86.8 fL (80.0-100.0); Monocytes # (auto) 0.5 10 ^3/uL (0-1.3); Monocytes % (auto) 7.4 % (0.0-12.0); Neutrophils # (auto) 5.1 10 ^3/uL (1.6-8.6); Neutrophils % (auto) 69.2 % (37.0-80.0); Red Blood Cells 4.78 10^6/uL (4.0-5.20); Red Cell Distribution Width 15.5 % (11.8-14.3); White Blood Cell 7.4 10^3/uL (4.4-10.8)
[2020-09-24 18:35] LABS: Amylase 61 U/L (25-115); Anion Gap 4 (5-15); Blood Urea Nitrogen 17 mg/dL (7-18); Calcium 8.6 mg/dL (8.5-10.1); Carbon Dioxide 29 mmol/L (21-32); Chloride 105 mmol/L (98-107); Glucose 142 mg/dL (74-106); Lipase 380 U/L (73-393); Magnesium 1.7 mg/dL (1.6-2.6); Sodium 138 mmol/L (136-145)
[2020-09-24 18:38] LABS: Alanine Aminotransferase 56 U/L (13-56); Alkaline Phosphatase 288 U/L (45-117); Aspartate Aminotransferase 83 U/L (15-37); BUN/Creatinine Ratio 16.5; GFR African American 72 mL/min; GFR Non-African American 59 mL/min; Total Protein 8.3 g/dL (6.4-8.2)
[2020-09-24 20:57] VITALS: BP 141/75
[2020-09-24] MEDS ORDERED: MORPHINE SULFATE INJECTION 2 MG/ML SYRG IM ONE (21:00)
[2020-09-24 21:10] LABS: Amphetamine Screen, Urine NEGATIVE (NEGATIVE); Barbiturate Scree,Urine NEGATIVE (NEGATIVE); Benzodiazephine Screen, Urine NEGATIVE (NEGATIVE); Cannabinoid Screen, Urine NEGATIVE (NEGATIVE); Cocaine Screen, Urine NEGATIVE (NEGATIVE); Opiate Scree,Urine NEGATIVE (NEGATIVE); Phencyclidine Screen, Urine NEGATIVE (NEGATIVE)
[2020-09-24 21:34] LABS: Urine Bacteria MOD /hpf (None Seen); Urine Blood 3+ /uL (Negative); Urine Specific Gravity 1.023 (1.001-1.035); Urine WBC 1264 /hpf (0 - 5)
[2020-09-24] MEDS ORDERED: CIPROFLOXACIN 400MG/200ML 200 ML IV ONE (22:00)
== END 2020-09-24 22:03 | disposition home or self-care (01) ==
LOC: ER 16:18
DX: K29.70 Gastritis, unspecified, without bleeding (principal); N39.0 Urinary tract infection, site not specified; K42.9 Umbilical hernia without obstruction or gangrene; R16.1 Splenomegaly, not elsewhere classified; K74.60 Unspecified cirrhosis of liver; R91.1 Solitary pulmonary nodule; Z20.822 Contact with and (suspected) exposure to COVID-19
CPT/HCPCS: 36415; 74176; 80053; 80307; 81001; 82150; 83690; 83735; 83880; 84484; 85025; 87426; 93005; 96361; 96374; 96375; 99285; J2405; J3490; J7030

== ENCOUNTER 2021-08-08 21:39 | Emergency (ER) | payer MEDICAID ==
[~2021-08-08] VITALS: Ht 165.1 cm; Wt 132.0 kg
[~2021-08-08 21:39] MED LIST changes: +CYCL-839 PO; -CYCL10TA6 PO; +MONT-8 PO; -MONT10TA42 PO
[2021-08-09] MEDS ORDERED: ALBUTEROL SULF 2.5 MG/0.5ML(0.5%) NEB SOLN HHN ONE
[2021-08-09] MEDS ORDERED: IPRATROPIUM BROM 0.5 MG/2.5ML INH SOL HHN ONE
[2021-08-09] MEDS ORDERED: DexAMETHasone SOD PHOS 10MG/1ML VIAL INJ IV ONE
[2021-08-09 02:29] LABS: Basophils # (auto) 0 10 ^3/uL (0-0.2); Basophils % (auto) 0.6 % (0.0-2.0); Eosinophils # (auto) 0.2 10 ^3/uL (0-0.8); Eosinophils % (auto) 2.8 % (0.0-7.0); Hematocrit 44.2 % (36.0-46.0); Hemoglobin 14.8 g/dL (12.2-16.2); Lymphocytes # (auto) 1.9 10 ^3/uL (0.4-5.4); Mean Corpuscular Hemoglobin 29.6 pg (28.0-32.0); Mean Corpuscular Hgb Conc. 33.4 g/dL (32.0-36.0); Mean Corpuscular Volume 88.5 fL (80.0-100.0); Monocytes # (auto) 0.4 10 ^3/uL (0-1.3); Monocytes % (auto) 6.5 % (0.0-12.0); Neutrophils # (auto) 3.9 10 ^3/uL (1.6-8.6); Neutrophils % (auto) 60.1 % (37.0-80.0); Nucleated Red Blood Cells % 0.2 %; Red Cell Distribution Width 14.4 % (11.8-14.3); White Blood Cell 6.4 10^3/uL (4.4-10.8)
[2021-08-09 03:00] LABS: Albumin 2.7 g/dL (3.4-5.0); Magnesium 2.7 mg/dL (1.6-2.6); Potassium 5.1 mmol/L (3.5-5.1)
[2021-08-09 03:09] LABS: INR 1.07 (0.9-1.15); Partial Thromboplastin Time 26.3 sec (23.6-33.0)
[2021-08-09 03:13] LABS: BUN/Creatinine Ratio 11.8; Bilirubin, Total 0.9 mg/dL (0.2-1.0); Total Protein 8.2 g/dL (6.4-8.2)
[2021-08-09 03:22] LABS: CRP High Sensitivity 1.95 mg/dL (< 0.3)
[2021-08-09 05:14] VITALS: BP 156/76
== END 2021-08-09 05:18 | disposition home or self-care (01) ==
LOC: ER 21:48
DX: J45.901 Unspecified asthma with (acute) exacerbation (principal); J20.9 Acute bronchitis, unspecified; N18.9 Chronic kidney disease, unspecified; E11.9 Type 2 diabetes mellitus without complications; E78.5 Hyperlipidemia, unspecified; Z90.49 Acquired absence of other specified parts of digestive tract; Z90.89 Acquired absence of other organs; Z20.822 Contact with and (suspected) exposure to COVID-19
CPT/HCPCS: 36415; 36600; 71045; 80053; 82805; 83735; 83880; 84484; 85025; 85379; 85610; 85730; 86141; 87040; 87426; 87804; 93005; 94640; 96374; 99285; J1100; J7644; 87077

== ENCOUNTER 2021-09-11 15:19 | Emergency (ER) | payer MEDICAID ==
[~2021-09-11] VITALS: Ht 165.1 cm; Wt 113.4 kg
[2021-09-11] MEDS ORDERED: SODIUM CHLORIDE 0.9% 1,000 ML IV ONE (15:45)
[2021-09-11] MEDS ORDERED: KETOROLAC TROMETH 30 MG/ML 1ML VIAL IV ONE (15:45)
[2021-09-11] MEDS ORDERED: ONDANSETRON HCL 4 MG/2 ML VIAL IV ONE (15:45)
[2021-09-11 19:55] LABS: Basophils # (auto) 0 10 ^3/uL (0-0.2); Basophils % (auto) 0.3 % (0.0-2.0); Eosinophils # (auto) 0 10 ^3/uL (0-0.8); Eosinophils % (auto) 0.4 % (0.0-7.0); Hematocrit 39.2 % (36.0-46.0); Hemoglobin 13.4 g/dL (12.2-16.2); Lymphocytes # (auto) 0.7 10 ^3/uL (0.4-5.4); Lymphocytes % (auto) 10.6 % (10.0-50.0); Mean Corpuscular Hemoglobin 29.6 pg (28.0-32.0); Mean Corpuscular Hgb Conc. 34.1 g/dL (32.0-36.0); Mean Corpuscular Volume 86.8 fL (80.0-100.0); Monocytes # (auto) 0.4 10 ^3/uL (0-1.3); Monocytes % (auto) 6.5 % (0.0-12.0); Neutrophils # (auto) 5.4 10 ^3/uL (1.6-8.6); Neutrophils % (auto) 82.2 % (37.0-80.0); Nucleated Red Blood Cells % 0.1 %; Red Blood Cells 4.52 10^6/uL (4.0-5.20); Red Cell Distribution Width 14.8 % (11.8-14.3); White Blood Cell 6.6 10^3/uL (4.4-10.8)
[2021-09-11 20:12] LABS: INR 1.05 (0.9-1.15); Partial Thromboplastin Time 25.9 sec (23.6-33.0)
[2021-09-11 20:16] LABS: Albumin 2.7 g/dL (3.4-5.0); BUN/Creatinine Ratio 14.3; Calcium 8.6 mg/dL (8.5-10.1); Potassium 4.5 mmol/L (3.5-5.1)
[2021-09-11 20:21] LABS: Bilirubin, Total 1.7 mg/dL (0.2-1.0); Total Protein 6.9 g/dL (6.4-8.2)
[2021-09-11 22:25] VITALS: BP 132/69
== END 2021-09-11 22:33 | disposition home or self-care (01) ==
LOC: EDBD 15:19 → ER 15:19
DX: K43.9 Ventral hernia without obstruction or gangrene (principal); R91.1 Solitary pulmonary nodule; R50.9 Fever, unspecified; E11.9 Type 2 diabetes mellitus without complications; E78.5 Hyperlipidemia, unspecified; J45.909 Unspecified asthma, uncomplicated; Z90.49 Acquired absence of other specified parts of digestive tract
CPT/HCPCS: 36415; 71045; 74176; 80053; 82150; 83690; 84484; 85025; 85610; 85730

== ENCOUNTER → 2022-02-14 | Day surgery (SDC) | payer MEDICAID ==
[2022-02-10 11:21] LABS: Basophils # (auto) 0 10 ^3/uL (0-0.2); Basophils % (auto) 0.6 % (0.0-2.0); Eosinophils # (auto) 0.1 10 ^3/uL (0-0.8); Eosinophils % (auto) 2.6 % (0.0-7.0); Hemoglobin 13.3 g/dL (12.2-16.2); Lymphocytes # (auto) 0.9 10 ^3/uL (0.4-5.4); Lymphocytes % (auto) 27.4 % (10.0-50.0); Mean Corpuscular Hemoglobin 29.1 pg (28.0-32.0); Mean Corpuscular Hgb Conc. 33.2 g/dL (32.0-36.0); Mean Corpuscular Volume 87.7 fL (80.0-100.0); Monocytes # (auto) 0.3 10 ^3/uL (0-1.3); Neutrophils % (auto) 60.4 % (37.0-80.0); Red Blood Cells 4.56 10^6/uL (4.0-5.20); Red Cell Distribution Width 15.4 % (11.8-14.3); White Blood Cell 3.4 10^3/uL (4.4-10.8)
[2022-02-10 11:41] LABS: INR 1.1 (0.9-1.15)
[2022-02-10 11:45] LABS: Albumin 2.9 g/dL (3.4-5.0); Potassium 4.4 mmol/L (3.5-5.1)
[2022-02-10 11:57] LABS: BUN/Creatinine Ratio 18.5; Bilirubin, Total 0.6 mg/dL (0.2-1.0); Total Protein 7.5 g/dL (6.4-8.2)
[2022-02-10 12:14] LABS: Urine Bacteria NONE SEEN /hpf (None Seen); Urine Blood Negative /uL (Negative); Urine Budding Yeast MODERATE /hpf (None Seen); Urine Mucus FEW (None Seen); Urine Specific Gravity 1.028 (1.001-1.035); Urine WBC 14 /hpf (0 - 5)
[~2022-02-14] VITALS: Ht 165.1 cm; Wt 135.2 kg
[~2022-02-14] MED LIST changes: -HYDR-531 PO; +LIDOCAINE VISCOUS 2% 15ML UD ONE; +MIDAZOLAM HCL 2MG/2ML 2ml VIAL (1mg/ml) ONE; +ONDANSETRON HCL 4 MG/2 ML VIAL IV PRN; +PROPOFOL 10 MG/ML 20 ML IV ONE; +fentaNYL CITRATE 100 MCG/2 ML VL ONE
[2022-02-14 14:05] VITALS: BP 113/57
== END | disposition home or self-care (01) ==
LOC: GI 11:19
PROVIDERS: ATTEND Internal Medicine Gastroenterology
DX: R12 Heartburn (principal); K76.6 Portal hypertension; K31.89 Other diseases of stomach and duodenum; I85.00 Esophageal varices without bleeding; K29.70 Gastritis, unspecified, without bleeding; K74.60 Unspecified cirrhosis of liver; E11.9 Type 2 diabetes mellitus without complications; K21.9 Gastro-esophageal reflux disease without esophagitis; G89.29 Other chronic pain; E11.40 Type 2 diabetes mellitus with diabetic neuropathy, unspecified; G47.33 Obstructive sleep apnea (adult) (pediatric); M54.50 Low back pain, unspecified; J45.909 Unspecified asthma, uncomplicated; F31.9 Bipolar disorder, unspecified; F41.9 Anxiety disorder, unspecified; I20.9 Angina pectoris, unspecified; Z90.89 Acquired absence of other organs; Z98.890 Other specified postprocedural states; Z79.899 Other long term (current) drug therapy; Z20.822 Contact with and (suspected) exposure to COVID-19; Z90.49 Acquired absence of other specified parts of digestive tract; Z82.49 Family history of ischemic heart disease and other diseases of the circulatory system; Z83.3 Family history of diabetes mellitus; Z83.438 Family history of other disorder of lipoprotein metabolism and other lipidemia; Z82.61 Family history of arthritis; Z81.8 Family history of other mental and behavioral disorders; Z81.1 Family history of alcohol abuse and dependence; Z83.49 Family history of other endocrine, nutritional and metabolic diseases; Z82.0 Family history of epilepsy and other diseases of the nervous system
CPT/HCPCS: 36415; 43235; 80053; 81001; 82962; 85025; 85610; 85730; J2250; J2704; J3010; U0003; 99152

== ENCOUNTER 2022-09-17 20:39 | Inpatient (IN) | payer MEDICAID ==
[~2022-09-17] VITALS: Ht 165.1 cm; Wt 138.5 kg
[~2022-09-17 20:39] MED LIST changes: -LIDOCAINE VISCOUS 2% 15ML UD ONE; -MIDAZOLAM HCL 2MG/2ML 2ml VIAL (1mg/ml) ONE; -ONDANSETRON HCL 4 MG/2 ML VIAL IV PRN; -PROPOFOL 10 MG/ML 20 ML IV ONE; -fentaNYL CITRATE 100 MCG/2 ML VL ONE
[2022-09-17] MEDS ORDERED: ALBUTEROL SULF 2.5 MG/0.5ML(0.5%) NEB SOLN NEB ONE (21:00)
[2022-09-17] MEDS ORDERED: MORPHINE SULFATE 4 MG/ML SYR/VIAL IV ONE (21:00)
[2022-09-17] MEDS ORDERED: ONDANSETRON HCL 4 MG/2 ML VIAL IV ONE (21:00)
[2022-09-17] MEDS ORDERED: DexAMETHasone SOD PHOS 10MG/1ML VIAL INJ IV ONE (21:00)
[2022-09-17 21:24] LABS: Basophils # (auto) 0 10 ^3/uL (0-0.2); Basophils % (auto) 0.7 % (0.0-2.0); Eosinophils # (auto) 0.1 10 ^3/uL (0-0.8); Eosinophils % (auto) 2.9 % (0.0-7.0); Hematocrit 38.1 % (36.0-46.0); Hemoglobin 12.7 g/dL (12.2-16.2); Lymphocytes % (auto) 26.6 % (10.0-50.0); Mean Corpuscular Hemoglobin 29.4 pg (28.0-32.0); Mean Corpuscular Hgb Conc. 33.2 g/dL (32.0-36.0); Mean Corpuscular Volume 88.5 fL (80.0-100.0); Monocytes # (auto) 0.3 10 ^3/uL (0-1.3); Monocytes % (auto) 6.9 % (0.0-12.0); Neutrophils # (auto) 2.4 10 ^3/uL (1.6-8.6); Neutrophils % (auto) 62.9 % (37.0-80.0); Nucleated Red Blood Cells % 0.1 %; Red Cell Distribution Width 16.1 % (11.8-14.3); White Blood Cell 3.8 10^3/uL (4.4-10.8)
[2022-09-17 21:36] LABS: INR 1.06 (0.9-1.15)
[2022-09-17 21:55] LABS: Albumin 2.5 g/dL (3.4-5.0); Calcium 8.6 mg/dL (8.5-10.1); Magnesium 2.1 mg/dL (1.6-2.6); Potassium 4.4 mmol/L (3.5-5.1)
[2022-09-17 21:58] LABS: Bilirubin, Total 0.7 mg/dL (0.2-1.0); Total Protein 6.5 g/dL (6.4-8.2)
[2022-09-17 22:29] LABS: BUN/Creatinine Ratio 16.8
[2022-09-18] MEDS ORDERED: ALBU108A5 IN (03:04)
[2022-09-18] MEDS ORDERED: ALBU1.257 IN (03:04)
[2022-09-18] MEDS ORDERED: PRED20TA2 PO (03:04)
[2022-09-18] MEDS ORDERED: LORazepam 0.5 MG TAB PO PRN (05:45)
[2022-09-18] MEDS ORDERED: ACETAMINOPHEN 325 MG TAB PO PRN (05:45)
[2022-09-18] MEDS ORDERED: ONDANSETRON HCL 4 MG/2 ML VIAL IV PRN (05:45)
[2022-09-18] MEDS ORDERED: MORPHINE SULFATE INJ 2 MG/ml SYRG IV PRN (05:45)
[2022-09-18] MEDS ORDERED: DEXTROSE (50%) 50ML SYRG IV PRN (05:45)
[2022-09-18] MEDS ORDERED: MAALOX PLUS or MAALOX 30 ML PO PRN (05:45)
[2022-09-18] MEDS ORDERED: DOCUSATE SOD 100 MG CAP PO PRN (05:45)
[2022-09-18] MEDS: IPRATROPIUM BROM 0.5 MG/2.5ML INH SOL NEB SCH ×5 (06:24→23:21)
[2022-09-18] MEDS: ALBUTEROL SULF 2.5 MG/0.5ML(0.5%) NEB SOLN NEB SCH ×5 (06:24→23:21)
[2022-09-18] MEDS: SODIUM CHLORIDE 0.9% 1,000 ML IV SCH ×2 (06:35→21:42)
[2022-09-18] MEDS: ACCU-CHEK COMFORT CURVE STRIP VI SCH ×4 (06:47→21:41)
[2022-09-18] MEDS: InsuLIN REG 1unit/0.01ml Soln (100units/ml) SC SCH ×4 (06:51→22:20)
[2022-09-18 06:57] LABS: BUN/Creatinine Ratio 21.3; Calcium 9.2 mg/dL (8.5-10.1); Potassium 4.3 mmol/L (3.5-5.1)
[2022-09-18 07:33] LABS: Basophils # (auto) 0 10 ^3/uL (0-0.2); Basophils % (auto) 0.5 % (0.0-2.0); Eosinophils # (auto) 0.1 10 ^3/uL (0-0.8); Eosinophils % (auto) 3.7 % (0.0-7.0); Hematocrit 37.5 % (36.0-46.0); Hemoglobin 12.6 g/dL (12.2-16.2); Lymphocytes # (auto) 0.7 10 ^3/uL (0.4-5.4); Lymphocytes % (auto) 23.2 % (10.0-50.0); Mean Corpuscular Hemoglobin 29.6 pg (28.0-32.0); Mean Corpuscular Hgb Conc. 33.7 g/dL (32.0-36.0); Mean Corpuscular Volume 87.8 fL (80.0-100.0); Monocytes # (auto) 0.1 10 ^3/uL (0-1.3); Neutrophils % (auto) 67.6 % (37.0-80.0); Nucleated Red Blood Cells % 0.2 %; Red Blood Cells 4.27 10^6/uL (4.0-5.20); Red Cell Distribution Width 15.7 % (11.8-14.3); White Blood Cell 2.9 10^3/uL (4.4-10.8)
[2022-09-18] MEDS ORDERED: methylPREDNISolone SOD SUCC 40 MG/ML VL IV SCH (10:00)
[2022-09-18] MEDS: DOXYCYCLINE 100 MG TAB/CAP PO SCH ×2 (10:21→21:41)
[2022-09-18] MEDS ORDERED: ALBUTEROL MEDNEB 2.5 mg/3ml NEB ONE ×2 (13:48→18:24)
[2022-09-18 14:49] VITALS: BP 149/77
[2022-09-18] MEDS: methylPREDNISolone SOD SUCC 40 MG/ML VL IV SCH (21:41)
[2022-09-18 22:00] VITALS: BP 147/69
[2022-09-18] MEDS ORDERED: INSLANTI SC (22:28)
[2022-09-18] MEDS ORDERED: MONT-8 PO (22:43)
[2022-09-18] MEDS ORDERED: SUCR1TAB PO (22:44)
[2022-09-18] MEDS ORDERED: PANT40TA2 PO (22:44)
[2022-09-19] VITALS (7 sets, daily range): BP systolic 136–149; BP diastolic 65–75
[2022-09-19] MEDS: methylPREDNISolone SOD SUCC 40 MG/ML VL IV SCH ×3 (05:46→21:37)
[2022-09-19] MEDS: InsuLIN REG 1unit/0.01ml Soln (100units/ml) SC SCH ×4 (06:11→22:02)
[2022-09-19] MEDS: IPRATROPIUM BROM 0.5 MG/2.5ML INH SOL NEB SCH ×5 (06:47→22:13)
[2022-09-19] MEDS: ALBUTEROL SULF 2.5 MG/0.5ML(0.5%) NEB SOLN NEB SCH ×5 (06:47→22:14)
[2022-09-19] MEDS: ACCU-CHEK COMFORT CURVE STRIP VI SCH ×4 (06:48→22:03)
[2022-09-19] MEDS: DOXYCYCLINE 100 MG TAB/CAP PO SCH ×2 (09:31→21:38)
[2022-09-19] MEDS: SODIUM CHLORIDE 0.9% 1,000 ML IV SCH (13:37)
[2022-09-19] MEDS ORDERED: ALBUTEROL MEDNEB 2.5 mg/3ml NEB ONE ×3 (14:11→22:09)
[2022-09-19] MEDS: INSULIN LANTUS (GLARGINE) 1 /0.01ml (100units/ml) SC SCH (22:06)
[2022-09-20] VITALS (7 sets, daily range): BP systolic 122–155; BP diastolic 61–82
[2022-09-20 05:57] LABS: Basophils # (auto) 0 10 ^3/uL (0-0.2); Basophils % (auto) 0.1 % (0.0-2.0); Eosinophils # (auto) 0 10 ^3/uL (0-0.8); Hematocrit 36.6 % (36.0-46.0); Lymphocytes # (auto) 0.4 10 ^3/uL (0.4-5.4); Mean Corpuscular Hgb Conc. 32.8 g/dL (32.0-36.0); Mean Corpuscular Volume 88.6 fL (80.0-100.0); Monocytes # (auto) 0.1 10 ^3/uL (0-1.3); Monocytes % (auto) 2.9 % (0.0-12.0); Neutrophils # (auto) 3.9 10 ^3/uL (1.6-8.6); Nucleated Red Blood Cells % 0.2 %; Red Blood Cells 4.13 10^6/uL (4.0-5.20); Red Cell Distribution Width 15.4 % (11.8-14.3); White Blood Cell 4.4 10^3/uL (4.4-10.8)
[2022-09-20] MEDS ORDERED: ALBUTEROL MEDNEB 2.5 mg/3ml NEB ONE ×4 (05:57→22:02)
[2022-09-20 06:20] LABS: Calcium 8.5 mg/dL (8.5-10.1); Magnesium 2.2 mg/dL (1.6-2.6); Potassium 4.8 mmol/L (3.5-5.1)
[2022-09-20 06:22] LABS: BUN/Creatinine Ratio 34.5
[2022-09-20] MEDS: methylPREDNISolone SOD SUCC 40 MG/ML VL IV SCH ×3 (06:22→22:00)
[2022-09-20] MEDS: INSULIN LANTUS (GLARGINE) 1 /0.01ml (100units/ml) SC SCH ×2 (06:23→22:07)
[2022-09-20] MEDS: ACCU-CHEK COMFORT CURVE STRIP VI SCH ×4 (06:23→22:00)
[2022-09-20] MEDS: InsuLIN REG 1unit/0.01ml Soln (100units/ml) SC SCH ×4 (06:24→22:08)
[2022-09-20] MEDS: IPRATROPIUM BROM 0.5 MG/2.5ML INH SOL NEB SCH ×5 (06:51→22:43)
[2022-09-20] MEDS: ALBUTEROL SULF 2.5 MG/0.5ML(0.5%) NEB SOLN NEB SCH ×5 (06:52→22:43)
[2022-09-20] MEDS: SODIUM CHLORIDE 0.9% 1,000 ML IV SCH (08:15)
[2022-09-20] MEDS: DOXYCYCLINE 100 MG TAB/CAP PO SCH ×2 (09:46→22:00)
[2022-09-21] MEDS: SODIUM CHLORIDE 0.9% 1,000 ML IV SCH ×2 (00:25→17:24)
[2022-09-21 05:00] VITALS: BP 132/64
[2022-09-21] MEDS: ACCU-CHEK COMFORT CURVE STRIP VI SCH ×4 (06:38→22:03)
[2022-09-21] MEDS: methylPREDNISolone SOD SUCC 40 MG/ML VL IV SCH ×3 (06:38→21:49)
[2022-09-21] MEDS: InsuLIN REG 1unit/0.01ml Soln (100units/ml) SC SCH ×4 (06:41→22:14)
[2022-09-21] MEDS: INSULIN LANTUS (GLARGINE) 1 /0.01ml (100units/ml) SC SCH ×2 (06:43→22:14)
[2022-09-21] MEDS ORDERED: ALBUTEROL MEDNEB 2.5 mg/3ml NEB ONE ×5 (06:53→21:36)
[2022-09-21] MEDS: ALBUTEROL SULF 2.5 MG/0.5ML(0.5%) NEB SOLN NEB SCH ×5 (07:34→21:40)
[2022-09-21] MEDS: IPRATROPIUM BROM 0.5 MG/2.5ML INH SOL NEB SCH ×5 (07:34→21:40)
[2022-09-21 08:35] VITALS: BP 160/72
[2022-09-21] MEDS: DOXYCYCLINE 100 MG TAB/CAP PO SCH ×2 (10:35→21:49)
[2022-09-21 12:35] VITALS: BP 137/67
[2022-09-21 16:25] VITALS: BP 140/70
[2022-09-21 22:00] VITALS: BP 145/67
[2022-09-21] MEDS: guaiFENesin 200 MG/10 ML UD PO PRN (22:48)
[2022-09-22] MEDS ORDERED: ALBUTEROL MEDNEB 2.5 mg/3ml NEB ONE ×5 (01:59→18:04)
[2022-09-22] MEDS: IPRATROPIUM BROM 0.5 MG/2.5ML INH SOL NEB SCH ×6 (02:00→23:49)
[2022-09-22] MEDS: ALBUTEROL SULF 2.5 MG/0.5ML(0.5%) NEB SOLN NEB SCH ×6 (02:00→23:49)
[2022-09-22 05:00] VITALS: BP 146/69
[2022-09-22] MEDS: methylPREDNISolone SOD SUCC 40 MG/ML VL IV SCH ×3 (06:21→21:47)
[2022-09-22] MEDS: INSULIN LANTUS (GLARGINE) 1 /0.01ml (100units/ml) SC SCH ×2 (07:01→21:42)
[2022-09-22] MEDS: InsuLIN REG 1unit/0.01ml Soln (100units/ml) SC SCH ×4 (07:01→21:42)
[2022-09-22] MEDS: ACCU-CHEK COMFORT CURVE STRIP VI SCH ×4 (07:02→22:00)
[2022-09-22 09:00] VITALS: BP 149/70
[2022-09-22] MEDS: DOXYCYCLINE 100 MG TAB/CAP PO SCH ×2 (09:03→21:45)
[2022-09-22] MEDS: SODIUM CHLORIDE 0.9% 1,000 ML IV SCH (09:45)
[2022-09-22 13:00] VITALS: BP 134/66
[2022-09-22 17:00] VITALS: BP 138/67
[2022-09-22] MEDS: HYDROcodone-ACET 5/325MG TAB PO PRN (20:35)
[2022-09-22 22:00] VITALS: BP 153/77
[2022-09-23] MEDS: SODIUM CHLORIDE 0.9% 1,000 ML IV SCH ×2 (02:25→18:39)
[2022-09-23 04:55] VITALS: BP 156/83
[2022-09-23] MEDS ORDERED: ALBUTEROL MEDNEB 2.5 mg/3ml NEB ONE ×3 (05:19→13:52)
[2022-09-23] MEDS: IPRATROPIUM BROM 0.5 MG/2.5ML INH SOL NEB SCH ×5 (05:53→22:35)
[2022-09-23] MEDS: ALBUTEROL SULF 2.5 MG/0.5ML(0.5%) NEB SOLN NEB SCH ×5 (05:53→22:34)
[2022-09-23] MEDS: InsuLIN REG 1unit/0.01ml Soln (100units/ml) SC SCH ×4 (06:11→22:08)
[2022-09-23] MEDS: INSULIN LANTUS (GLARGINE) 1 /0.01ml (100units/ml) SC SCH ×2 (06:11→22:07)
[2022-09-23] MEDS: methylPREDNISolone SOD SUCC 40 MG/ML VL IV SCH ×3 (06:18→22:06)
[2022-09-23] MEDS: ACCU-CHEK COMFORT CURVE STRIP VI SCH ×4 (06:19→22:06)
[2022-09-23 09:00] VITALS: BP 159/69
[2022-09-23] MEDS: DOXYCYCLINE 100 MG TAB/CAP PO SCH ×2 (09:05→22:06)
[2022-09-23] MEDS: HYDROcodone-ACET 5/325MG TAB PO PRN (11:39)
[2022-09-23 13:00] VITALS: BP 138/66
[2022-09-23] MEDS: guaiFENesin 200 MG/10 ML UD PO PRN (13:02)
[2022-09-23 16:48] VITALS: BP 142/64
[2022-09-23 22:00] VITALS: BP 148/56
[2022-09-24] VITALS (7 sets, daily range): BP systolic 130–155; BP diastolic 61–76
[2022-09-24] MEDS ORDERED: ALBUTEROL MEDNEB 2.5 mg/3ml NEB ONE ×6 (06:01→21:48)
[2022-09-24] MEDS: InsuLIN REG 1unit/0.01ml Soln (100units/ml) SC SCH ×4 (06:24→21:36)
[2022-09-24] MEDS: ALBUTEROL SULF 2.5 MG/0.5ML(0.5%) NEB SOLN NEB SCH ×5 (06:25→22:26)
[2022-09-24] MEDS: methylPREDNISolone SOD SUCC 40 MG/ML VL IV SCH ×3 (06:25→21:38)
[2022-09-24] MEDS: IPRATROPIUM BROM 0.5 MG/2.5ML INH SOL NEB SCH ×5 (06:25→22:26)
[2022-09-24] MEDS: INSULIN LANTUS (GLARGINE) 1 /0.01ml (100units/ml) SC SCH ×2 (06:25→21:37)
[2022-09-24] MEDS: ACCU-CHEK COMFORT CURVE STRIP VI SCH ×4 (06:32→21:38)
[2022-09-24] MEDS: DOXYCYCLINE 100 MG TAB/CAP PO SCH ×2 (08:50→21:38)
[2022-09-24] MEDS: SODIUM CHLORIDE 0.9% 1,000 ML IV SCH (11:45)
[2022-09-25] MEDS: SODIUM CHLORIDE 0.9% 1,000 ML IV SCH (04:25)
[2022-09-25 04:52] VITALS: BP 123/61
[2022-09-25] MEDS: INSULIN LANTUS (GLARGINE) 1 /0.01ml (100units/ml) SC SCH (05:32)
[2022-09-25] MEDS: InsuLIN REG 1unit/0.01ml Soln (100units/ml) SC SCH ×2 (05:32→11:46)
[2022-09-25] MEDS: methylPREDNISolone SOD SUCC 40 MG/ML VL IV SCH ×2 (05:33→14:00)
[2022-09-25] MEDS ORDERED: ALBUTEROL MEDNEB 2.5 mg/3ml NEB ONE ×2 (06:49→10:17)
[2022-09-25] MEDS: ALBUTEROL SULF 2.5 MG/0.5ML(0.5%) NEB SOLN NEB SCH ×3 (07:26→15:08)
[2022-09-25] MEDS: IPRATROPIUM BROM 0.5 MG/2.5ML INH SOL NEB SCH ×3 (07:26→15:08)
[2022-09-25 07:37] LABS: Basophils # (auto) 0 10 ^3/uL (0-0.2); Eosinophils # (auto) 0 10 ^3/uL (0-0.8); Hematocrit 42.7 % (36.0-46.0); Hemoglobin 13.8 g/dL (12.2-16.2); Lymphocytes # (auto) 0.3 10 ^3/uL (0.4-5.4); Lymphocytes % (auto) 6.9 % (10.0-50.0); Mean Corpuscular Hemoglobin 28.4 pg (28.0-32.0); Mean Corpuscular Hgb Conc. 32.3 g/dL (32.0-36.0); Monocytes # (auto) 0.2 10 ^3/uL (0-1.3); Monocytes % (auto) 5.2 % (0.0-12.0); Neutrophils # (auto) 4.2 10 ^3/uL (1.6-8.6); Neutrophils % (auto) 87.9 % (37.0-80.0); Nucleated Red Blood Cells % 0.1 %; Red Blood Cells 4.85 10^6/uL (4.0-5.20); Red Cell Distribution Width 15.6 % (11.8-14.3); White Blood Cell 4.8 10^3/uL (4.4-10.8)
[2022-09-25 07:44] LABS: Potassium 4.5 mmol/L (3.5-5.1)
[2022-09-25 07:50] LABS: Albumin 2.3 g/dL (3.4-5.0); Calcium 8.7 mg/dL (8.5-10.1); Magnesium 2.3 mg/dL (1.6-2.6)
[2022-09-25 07:52] LABS: Bilirubin, Total 0.7 mg/dL (0.2-1.0); Total Protein 6.3 g/dL (6.4-8.2)
[2022-09-25 08:15] VITALS: BP 134/64
[2022-09-25 08:27] VITALS: BP_SYST 114; BP_SYST 134; BP_DIAS 64; BP_DIAS 72
[2022-09-25] MEDS ORDERED: PANTOPRAZOLE 40 MG TAB PO SCH (10:00)
[2022-09-25] MEDS: DOXYCYCLINE 100 MG TAB/CAP PO SCH (10:03)
[2022-09-25] MEDS: ACCU-CHEK COMFORT CURVE STRIP VI SCH (11:38)
[2022-09-25 12:25] VITALS: BP 129/78
[2022-09-25] MEDS ORDERED: DOX100T PO (16:04)
[2022-09-25] MEDS ORDERED: ALBUAER3 IN (16:04)
[2022-09-25] MEDS ORDERED: PRED20TA2 PO (16:04)
[2022-09-25 16:17] VITALS: BP 129/78
== END 2022-09-25 17:23 | disposition home or self-care (01) | DRG 133 ==
LOC: ER 20:39 → EDBD 20:39 → OVERFLOW 09-18 05:41 → EAST 09-18 21:17
PROVIDERS: ADMIT Hospitalist; ATTEND Internal Medicine
DX: J96.01 Acute respiratory failure with hypoxia (principal); J45.901 Unspecified asthma with (acute) exacerbation; Z68.43 Body mass index [BMI] 50.0-59.9, adult; D72.819 Decreased white blood cell count, unspecified; E11.65 Type 2 diabetes mellitus with hyperglycemia; R91.1 Solitary pulmonary nodule; E66.01 Morbid (severe) obesity due to excess calories; Z20.822 Contact with and (suspected) exposure to COVID-19; Z90.5 Acquired absence of kidney; Z83.3 Family history of diabetes mellitus; Z82.49 Family history of ischemic heart disease and other diseases of the circulatory system; Z79.4 Long term (current) use of insulin; Z82.1 Family history of blindness and visual loss; Z82.0 Family history of epilepsy and other diseases of the nervous system; Z81.8 Family history of other mental and behavioral disorders; Z90.49 Acquired absence of other specified parts of digestive tract
CPT/HCPCS: 36415; 71045; 71275; 80048; 80053; 82962; 83036; 83690; 83735; 83880; 84484; 85025; 85610; 85730; 87426; 93005; 94640; 96372; 96374; 96375; G0378; J1100; J1815; J2405

== ENCOUNTER 2022-10-02 09:34 | Inpatient (IN) | payer MEDICAID ==
[~2022-10-02] VITALS: Ht 167.6 cm; Wt 157.5 kg
[~2022-10-02 09:34] MED LIST changes: +DOX100T PO; +INSLANTI SC; -OME20T PO; +PANT40TA2 PO; +PRED20TA2 PO; +SUCR1TAB PO
[2022-10-02 10:10] LABS: Hemoglobin 14.1 g/dL (12.2-16.2); Mean Corpuscular Hemoglobin 28.7 pg (28.0-32.0); Red Blood Cells 4.92 10^6/uL (4.0-5.20)
[2022-10-02 10:15] LABS: Hematocrit 42.9 % (36.0-46.0); Mean Corpuscular Hgb Conc. 32.8 g/dL (32.0-36.0); Mean Corpuscular Volume 87.3 fL (80.0-100.0); Red Cell Distribution Width 16.4 % (11.8-14.3); White Blood Cell 11.6 10^3/uL (4.4-10.8)
[2022-10-02 10:27] LABS: Calcium 8.1 mg/dL (8.5-10.1); Potassium 4.7 mmol/L (3.5-5.1)
[2022-10-02 10:31] LABS: BUN/Creatinine Ratio 34.3; Bilirubin, Total 2.1 mg/dL (0.2-1.0); Total Protein 6.1 g/dL (6.4-8.2)
[2022-10-02 10:50] LABS: Basophils % (manual) 0 (0.0-2.0); Blast Cells 0; Eosinophils % (manual) 0 (0-7); Metamyelocytes % 0; Monocytes % (manual) 0 (0-12); Myelocytes % 0; Promyelocytes % 0; Reactive Lymphocytes 0
[2022-10-02] MEDS ORDERED: ASPirin 81 mg TAB PO ONE (11:00)
[2022-10-02] MEDS ORDERED: ENOXAPARIN SOD 150 MG/1 ML SYRINGE SC ONE (12:30)
[2022-10-02] MEDS ORDERED: MORPHINE SULFATE 4 MG/ML SYR/VIAL IV ONE (12:30)
[2022-10-02] MEDS ORDERED: NITROGLYCERIN 0.4 MG SL TAB SL ONE (12:30)
[2022-10-02 13:19] LABS: Band Neutrophils % (manual) 45; Lymphocytes % (manual) 1 (10.0-50.0)
[2022-10-02] MEDS ORDERED: ONDANSETRON HCL 4 MG/2 ML VIAL IV ONE (13:30)
[2022-10-02] MEDS ORDERED: MORPHINE SULFATE INJ 2 MG/ml SYRG IV PRN (14:00)
[2022-10-02] MEDS ORDERED: NITROGLYCERIN 0.4 MG SL TAB SL PRN (14:00)
[2022-10-02] MEDS ORDERED: DEXTROSE (50%) 50ML SYRG IV PRN (14:00)
[2022-10-02] MEDS ORDERED: levoFLOXacin 250MG 50 ML IV ONE (14:00)
[2022-10-02] MEDS ORDERED: SODIUM CHLORIDE 0.9% 1,000 ML IV ONE (14:00)
[2022-10-02 14:19] LABS: Urine WBC None Seen /hpf (0 - 5)
[2022-10-02] MEDS ORDERED: ASPirin 325 MG TAB PO ONE (14:30)
[2022-10-02] MEDS ORDERED: IPRATROPIUM BROM 0.5 MG/2.5ML INH SOL NEB PRN (14:30)
[2022-10-02] MEDS ORDERED: ALBUTEROL SULF 2.5 MG/0.5ML(0.5%) NEB SOLN NEB PRN (14:30)
[2022-10-02] MEDS ORDERED: PANTOPRAZOLE 40 MG/10 ML VIAL INJ IV ONE (14:30)
[2022-10-02 14:37] LABS: Cholesterol 181 mg/dL (< 200)
[2022-10-02 14:40] LABS: HDL Cholesterol 16 mg/dL (40-59); LDL Cholesterol 84 mg/dL (< 100); Triglycerides 256 mg/dL (< 150)
[2022-10-02 14:48] LABS: Urine Bacteria MOD /hpf (None Seen); Urine Blood Negative /uL (Negative); Urine Budding Yeast MANY /hpf (None Seen); Urine Specific Gravity 1.026 (1.001-1.035)
[2022-10-02 14:56] LABS: Amphetamine Screen, Urine NEGATIVE (NEGATIVE); Barbiturate Scree,Urine NEGATIVE (NEGATIVE); Benzodiazephine Screen, Urine NEGATIVE (NEGATIVE); Cannabinoid Screen, Urine NEGATIVE (NEGATIVE); Cocaine Screen, Urine NEGATIVE (NEGATIVE); Opiate Scree,Urine NEGATIVE (NEGATIVE); Phencyclidine Screen, Urine NEGATIVE (NEGATIVE)
[2022-10-02 14:58] LABS: Bilirubin, Total 1.7 mg/dL (0.2-1.0)
[2022-10-02] MEDS: SODIUM CHLORIDE 0.9% 1,000 ML IV SCH (15:03)
[2022-10-02 15:23] LABS: INR 1.24 (0.9-1.15)
[2022-10-02] MEDS ORDERED: IOHEXOL 350 MG/ML 100ML IJ ONE (16:18)
[2022-10-02] MEDS ORDERED: ALBUTEROL MEDNEB 2.5 mg/3ml NEB ONE (17:16)
[2022-10-02] MEDS: ALBUTEROL SULF 2.5 MG/0.5ML(0.5%) NEB SOLN NEB SCH (17:31)
[2022-10-02] MEDS: IPRATROPIUM BROM 0.5 MG/2.5ML INH SOL NEB SCH (17:31)
[2022-10-02] MEDS: InsuLIN REG 1unit/0.01ml Soln (100units/ml) SC SCH ×2 (17:44→23:34)
[2022-10-02] MEDS: ACCU-CHEK COMFORT CURVE STRIP VI SCH ×2 (17:44→23:37)
[2022-10-02 19:39] VITALS: BP 151/72
[2022-10-02] MEDS: INSULIN LANTUS (GLARGINE) 1 /0.01ml (100units/ml) SC SCH (23:34)
[2022-10-02] MEDS: GABAPENTIN 300 MG CAP PO SCH (23:36)
[2022-10-02] MEDS: ATORVASTATIN 20 MG TAB PO SCH (23:36)
[2022-10-03] VITALS (7 sets, daily range): BP systolic 100–146; BP diastolic 36–89
[2022-10-03] MEDS: PATIENTS OWN MEDICATION (Beclomethasone Dipropionate (Qvar) 80 MCG) IN SCH ×3 (00:27→22:00)
[2022-10-03] MEDS ORDERED: HYDROcodone-ACET 5/325MG TAB PO PRN (00:30)
[2022-10-03] MEDS ORDERED: ALBUTEROL MEDNEB 2.5 mg/3ml NEB ONE ×4 (05:36→18:16)
[2022-10-03] MEDS: ACCU-CHEK COMFORT CURVE STRIP VI SCH ×4 (06:28→22:52)
[2022-10-03 06:29] LABS: Potassium 5.3 mmol/L (3.5-5.1)
[2022-10-03] MEDS: InsuLIN REG 1unit/0.01ml Soln (100units/ml) SC SCH ×4 (06:29→22:49)
[2022-10-03] MEDS: GABAPENTIN 300 MG CAP PO SCH ×3 (06:29→21:35)
[2022-10-03 06:37] LABS: Albumin 1.9 g/dL (3.4-5.0); BUN/Creatinine Ratio 38.1; Bilirubin, Total 1.7 mg/dL (0.2-1.0); Calcium 7.6 mg/dL (8.5-10.1); Total Protein 4.9 g/dL (6.4-8.2)
[2022-10-03 06:46] LABS: Basophils # (auto) 0 10 ^3/uL (0-0.2); Hemoglobin 12.8 g/dL (12.2-16.2); Lymphocytes # (auto) 0.3 10 ^3/uL (0.4-5.4); Monocytes # (auto) 0.8 10 ^3/uL (0-1.3)
[2022-10-03 06:49] LABS: Basophils % (auto) 0.3 % (0.0-2.0); Eosinophils # (auto) 0.1 10 ^3/uL (0-0.8); Eosinophils % (auto) 0.5 % (0.0-7.0); Hematocrit 39.1 % (36.0-46.0); Lymphocytes % (auto) 3.3 % (10.0-50.0); Mean Corpuscular Hemoglobin 29.2 pg (28.0-32.0); Mean Corpuscular Hgb Conc. 32.6 g/dL (32.0-36.0); Mean Corpuscular Volume 89.5 fL (80.0-100.0); Monocytes % (auto) 8.1 % (0.0-12.0); Neutrophils % (auto) 87.8 % (37.0-80.0); Nucleated Red Blood Cells % 0.1 %; Red Blood Cells 4.37 10^6/uL (4.0-5.20); Red Cell Distribution Width 16.9 % (11.8-14.3); White Blood Cell 10.3 10^3/uL (4.4-10.8)
[2022-10-03] MEDS: MONTELUKAST SODIUM 10 MG TAB PO SCH (09:48)
[2022-10-03] MEDS: PANTOPRAZOLE 40 MG/10 ML VIAL INJ IV SCH (09:49)
[2022-10-03] MEDS: SODIUM CHLORIDE 0.9% 1,000 ML IV SCH ×3 (09:49→10:30)
[2022-10-03] MEDS: ASPirin 81 mg TAB PO SCH (09:59)
[2022-10-03] MEDS: INSULIN LANTUS (GLARGINE) 1 /0.01ml (100units/ml) SC SCH ×2 (09:59→21:39)
[2022-10-03] MEDS ORDERED: levoFLOXacin 250MG 50 ML IV SCH (10:00)
[2022-10-03] MEDS ORDERED: ENOXAPARIN SOD 40 MG/0.4 ML SYRINGE SC SCH (10:00)
[2022-10-03] MEDS ORDERED: FUROSEMIDE 40 MG/4 ML VIAL IV SCH (10:00)
[2022-10-03] MEDS ORDERED: MEROPENEM 1GM IVPB 100 ML IV ONE (10:30)
[2022-10-03] MEDS ORDERED: ACETAMINOPHEN 500 MG TAB PO PRN (10:45)
[2022-10-03] MEDS: ALBUTEROL SULF 2.5 MG/0.5ML(0.5%) NEB SOLN NEB SCH ×2 (15:14→19:04)
[2022-10-03] MEDS: IPRATROPIUM BROM 0.5 MG/2.5ML INH SOL NEB SCH ×2 (15:14→19:04)
[2022-10-03] MEDS: MEROPENEM 1GM IVPB 100 ML IV SCH (21:13)
[2022-10-03] MEDS: ATORVASTATIN 20 MG TAB PO SCH (21:34)
[2022-10-04] VITALS (12 sets, daily range): BP systolic 98–141; BP diastolic 49–94
[2022-10-04] MEDS: SODIUM CHLORIDE 0.9% 1,000 ML IV SCH (00:55)
[2022-10-04] MEDS: MEROPENEM 1GM IVPB 100 ML IV SCH ×2 (02:13→10:55)
[2022-10-04] MEDS ORDERED: ALBUTEROL MEDNEB 2.5 mg/3ml NEB ONE ×3 (05:50→18:11)
[2022-10-04 06:18] LABS: Hemoglobin 12.1 g/dL (12.2-16.2)
[2022-10-04 06:24] LABS: Hematocrit 37.2 % (36.0-46.0); Mean Corpuscular Hemoglobin 28.4 pg (28.0-32.0); Mean Corpuscular Hgb Conc. 32.6 g/dL (32.0-36.0); Red Blood Cells 4.28 10^6/uL (4.0-5.20); Red Cell Distribution Width 16.6 % (11.8-14.3)
[2022-10-04 06:34] LABS: Potassium 5.2 mmol/L (3.5-5.1)
[2022-10-04 06:45] LABS: Albumin 1.6 g/dL (3.4-5.0); BUN/Creatinine Ratio 40.4; Bilirubin, Total 1.6 mg/dL (0.2-1.0); Calcium 7.4 mg/dL (8.5-10.1); Total Protein 5.1 g/dL (6.4-8.2)
[2022-10-04] MEDS: ACCU-CHEK COMFORT CURVE STRIP VI SCH ×4 (06:45→23:37)
[2022-10-04] MEDS: GABAPENTIN 300 MG CAP PO SCH ×3 (06:45→22:02)
[2022-10-04] MEDS: InsuLIN REG 1unit/0.01ml Soln (100units/ml) SC SCH ×4 (06:46→23:45)
[2022-10-04 06:53] LABS: Basophils % (manual) 0 (0.0-2.0); Blast Cells 0; Metamyelocytes % 0; Myelocytes % 0; Promyelocytes % 0
[2022-10-04] MEDS: ALBUTEROL SULF 2.5 MG/0.5ML(0.5%) NEB SOLN NEB SCH ×3 (07:26→18:23)
[2022-10-04] MEDS: IPRATROPIUM BROM 0.5 MG/2.5ML INH SOL NEB SCH ×3 (07:26→18:23)
[2022-10-04 08:17] LABS: Band Neutrophils % (manual) 20; Eosinophils % (manual) 2 (0-7); Lymphocytes % (manual) 4 (10.0-50.0); Monocytes % (manual) 9 (0-12); Reactive Lymphocytes 1
[2022-10-04] MEDS: ASPirin 81 mg TAB PO SCH (10:00)
[2022-10-04] MEDS ORDERED: FUROSEMIDE 40 MG/4 ML VIAL IV SCH (10:15)
[2022-10-04] MEDS ORDERED: ERGOCALCIFEROL 50,000 UNIT(1.25MG) CAP PO SCH (10:15)
[2022-10-04] MEDS: PANTOPRAZOLE 40 MG/10 ML VIAL INJ IV SCH (10:33)
[2022-10-04] MEDS: MONTELUKAST SODIUM 10 MG TAB PO SCH (10:37)
[2022-10-04] MEDS: ALBUMIN 25% 100 ML IV SCH ×2 (10:45→22:10)
[2022-10-04] MEDS: INSULIN LANTUS (GLARGINE) 1 /0.01ml (100units/ml) SC SCH ×2 (10:53→23:45)
[2022-10-04] MEDS ORDERED: CEFTRIAXONE SODIUM 2 GM in D5W 5% 50 ML IV ONE (11:00)
[2022-10-04] MEDS ORDERED: VANCOMYCIN PER PHARMACY 0 MG IV SCH (11:15)
[2022-10-04] MEDS ORDERED: LACTULOSE 20Gm/30ML SOLN PO ONE (11:15)
[2022-10-04] MEDS: BUDESONIDE (INHALATION) 0.5 MG/2 ML NEB NEB SCH ×2 (11:15→18:23)
[2022-10-04] MEDS ORDERED: METOCLOPRAMIDE HCL 5MG/ml INJ 2ml VIAL IV ONE (11:30)
[2022-10-04] MEDS ORDERED: VANCOMYCIN 1GM/250ML 250 ML IV ONE (12:15)
[2022-10-04 12:53] LABS: Creatinine, Urine 137 mg/dL (30.0-125.0); Protein, Urine 37.4 mg/dL (0.0-11.9); Sodium Urine < 5 mmol/L (40-220)
[2022-10-04] MEDS: FUROSEMIDE INJECTION 100 MG in D5W 5% 100 ML IV SCH ×2 (13:12→23:38)
[2022-10-04] MEDS ORDERED: MIDAZOLAM HCL 2MG/2ML 2ml VIAL (1mg/ml) IV ONE (15:00)
[2022-10-04] MEDS ORDERED: fentaNYL CITRATE 100 MCG/2 ML VL IV ONE (15:00)
[2022-10-04] MEDS ORDERED: LIDOCAINE VISCOUS 2% 15ML UD MT ONE (15:00)
[2022-10-04] MEDS: CALCIUM ACETATE 667 MG CAP PO SCH (17:30)
[2022-10-04] MEDS: ATORVASTATIN 20 MG TAB PO SCH (22:02)
[2022-10-04] MEDS: LACTULOSE 20Gm/30ML SOLN PO SCH (22:02)
[2022-10-04] MEDS: OCTREOTIDE ACETATE 100 MCG/ML VL SUBCUT SCH (23:38)
[2022-10-05] VITALS (13 sets, daily range): BP systolic 103–128; BP diastolic 58–84
[2022-10-05] MEDS ORDERED: VANCOMYCIN 1GM/250ML 250 ML IV SCH (06:00)
[2022-10-05] MEDS ORDERED: ALBUTEROL MEDNEB 2.5 mg/3ml NEB ONE ×3 (06:07→18:01)
[2022-10-05] MEDS: GABAPENTIN 300 MG CAP PO SCH ×4 (06:22→22:06)
[2022-10-05] MEDS: OCTREOTIDE ACETATE 100 MCG/ML VL SUBCUT SCH ×3 (06:24→22:07)
[2022-10-05 06:30] LABS: Anion Gap 10 (5-15); BUN/Creatinine Ratio 47.7; Calcium 7.6 mg/dL (8.5-10.1); Carbon Dioxide 20 mmol/L (21-32); Chloride 98 mmol/L (98-107); GFR African American 38 mL/min; GFR Non-African American 32 mL/min; Glucose 317 mg/dL (74-106); Potassium 5.5 mmol/L (3.5-5.1); Sodium 128 mmol/L (136-145)
[2022-10-05 06:35] LABS: Blood Urea Nitrogen 84 mg/dL (7-18)
[2022-10-05] MEDS: ACCU-CHEK COMFORT CURVE STRIP VI SCH ×4 (06:57→22:06)
[2022-10-05] MEDS: InsuLIN REG 1unit/0.01ml Soln (100units/ml) SC SCH ×4 (06:58→22:10)
[2022-10-05] MEDS: BUDESONIDE (INHALATION) 0.5 MG/2 ML NEB NEB SCH ×2 (07:13→19:38)
[2022-10-05] MEDS: ALBUTEROL SULF 2.5 MG/0.5ML(0.5%) NEB SOLN NEB SCH ×4 (07:13→18:46)
[2022-10-05] MEDS: IPRATROPIUM BROM 0.5 MG/2.5ML INH SOL NEB SCH ×4 (07:14→18:45)
[2022-10-05 08:18] LABS: Hematocrit 39.3 % (36.0-46.0); Hemoglobin 12.8 g/dL (12.2-16.2); Mean Corpuscular Hemoglobin 28.6 pg (28.0-32.0); Mean Corpuscular Hgb Conc. 32.6 g/dL (32.0-36.0); Mean Corpuscular Volume 87.6 fL (80.0-100.0); Red Blood Cells 4.49 10^6/uL (4.0-5.20); Red Cell Distribution Width 16.7 % (11.8-14.3)
[2022-10-05 08:26] LABS: Basophils % (manual) 0 (0.0-2.0); Blast Cells 0; Eosinophils % (manual) 0 (0-7); Metamyelocytes % 0; Myelocytes % 0; Promyelocytes % 0; Reactive Lymphocytes 0
[2022-10-05 08:58] LABS: Hepatitis B Surface Antibody Negative (Negative)
[2022-10-05] MEDS: CEFTRIAXONE SODIUM 2 GM in D5W 5% 50 ML IV SCH (09:13)
[2022-10-05] MEDS: FUROSEMIDE INJECTION 100 MG in D5W 5% 100 ML IV SCH ×4 (09:21→21:49)
[2022-10-05] MEDS: PANTOPRAZOLE 40 MG/10 ML VIAL INJ IV SCH (09:29)
[2022-10-05] MEDS: ASPirin 81 mg TAB PO SCH (09:30)
[2022-10-05] MEDS: LACTULOSE 20Gm/30ML SOLN PO SCH ×2 (09:30→22:05)
[2022-10-05] MEDS: CALCIUM ACETATE 667 MG CAP PO SCH ×3 (09:31→17:15)
[2022-10-05] MEDS: MONTELUKAST SODIUM 10 MG TAB PO SCH (09:31)
[2022-10-05] MEDS: ALBUMIN 25% 100 ML IV SCH ×2 (09:33→22:05)
[2022-10-05 09:37] LABS: Hepatitis A Total Antibody Negative (Negative)
[2022-10-05] MEDS: INSULIN LANTUS (GLARGINE) 1 /0.01ml (100units/ml) SC SCH ×2 (10:43→22:08)
[2022-10-05] MEDS ORDERED: FUROSEMIDE 40 MG/4 ML VIAL IV ONE (11:00)
[2022-10-05 11:09] LABS: Band Neutrophils % (manual) 13; Lymphocytes % (manual) 10 (10.0-50.0); Monocytes % (manual) 10 (0-12)
[2022-10-05 11:34] LABS: Hepatitis C Antibody Negative (Negative)
[2022-10-05 11:35] LABS: Hepatitis A Ab IgM Negative; Hepatitis B Core IgM Negative
[2022-10-05 11:36] LABS: Hepatitis C Antibody Negative (Negative)
[2022-10-05] MEDS: ATORVASTATIN 20 MG TAB PO SCH (22:05)
[2022-10-06] VITALS (18 sets, daily range): BP systolic 94–145; BP diastolic 47–73
[2022-10-06] MEDS: FUROSEMIDE INJECTION 100 MG in D5W 5% 100 ML IV SCH ×4 (03:04→17:58)
[2022-10-06 05:13] LABS: Hemoglobin 11.2 g/dL (12.2-16.2); Red Cell Distribution Width 16.3 % (11.8-14.3)
[2022-10-06 05:15] LABS: Hematocrit 34.1 % (36.0-46.0); Mean Corpuscular Hemoglobin 28.4 pg (28.0-32.0); Mean Corpuscular Volume 86.1 fL (80.0-100.0); Red Blood Cells 3.96 10^6/uL (4.0-5.20); White Blood Cell 8.6 10^3/uL (4.4-10.8)
[2022-10-06 05:31] LABS: Albumin 2.4 g/dL (3.4-5.0); Calcium 7.6 mg/dL (8.5-10.1); Potassium 4.9 mmol/L (3.5-5.1)
[2022-10-06 05:36] LABS: BUN/Creatinine Ratio 51.9; Bilirubin, Total 2.1 mg/dL (0.2-1.0); Total Protein 5.1 g/dL (6.4-8.2)
[2022-10-06 05:44] LABS: Basophils % (manual) 0 (0.0-2.0); Blast Cells 0; Eosinophils % (manual) 0 (0-7); Metamyelocytes % 0; Myelocytes % 0; Promyelocytes % 0; Reactive Lymphocytes 0
[2022-10-06] MEDS ORDERED: ALBUTEROL MEDNEB 2.5 mg/3ml NEB ONE ×2 (05:58→18:42)
[2022-10-06] MEDS: GABAPENTIN 300 MG CAP PO SCH ×3 (06:01→23:50)
[2022-10-06] MEDS: OCTREOTIDE ACETATE 100 MCG/ML VL SUBCUT SCH ×3 (06:02→23:49)
[2022-10-06] MEDS: ACCU-CHEK COMFORT CURVE STRIP VI SCH ×4 (06:02→23:51)
[2022-10-06] MEDS: InsuLIN REG 1unit/0.01ml Soln (100units/ml) SC SCH ×4 (06:13→23:58)
[2022-10-06 06:45] LABS: Band Neutrophils % (manual) 1; Lymphocytes % (manual) 7 (10.0-50.0); Monocytes % (manual) 6 (0-12)
[2022-10-06] MEDS: BUDESONIDE (INHALATION) 0.5 MG/2 ML NEB NEB SCH ×2 (07:42→22:06)
[2022-10-06] MEDS: IPRATROPIUM BROM 0.5 MG/2.5ML INH SOL NEB SCH ×3 (07:42→19:05)
[2022-10-06] MEDS: ALBUTEROL SULF 2.5 MG/0.5ML(0.5%) NEB SOLN NEB SCH ×3 (07:42→19:05)
[2022-10-06] MEDS: PANTOPRAZOLE 40 MG/10 ML VIAL INJ IV SCH (09:16)
[2022-10-06] MEDS: ASPirin 81 mg TAB PO SCH (09:17)
[2022-10-06] MEDS: MONTELUKAST SODIUM 10 MG TAB PO SCH (09:17)
[2022-10-06] MEDS: LACTULOSE 20Gm/30ML SOLN PO SCH ×2 (09:17→23:50)
[2022-10-06] MEDS: CALCIUM ACETATE 667 MG CAP PO SCH ×3 (09:17→17:58)
[2022-10-06] MEDS: INSULIN LANTUS (GLARGINE) 1 /0.01ml (100units/ml) SC SCH ×2 (09:32→23:59)
[2022-10-06] MEDS: CEFTRIAXONE SODIUM 2 GM in D5W 5% 50 ML IV SCH (17:58)
[2022-10-06] MEDS: ATORVASTATIN 20 MG TAB PO SCH (23:49)
[2022-10-07] VITALS (27 sets, daily range): BP systolic 103–170; BP diastolic 49–124
[2022-10-07] MEDS: FUROSEMIDE INJECTION 100 MG in D5W 5% 100 ML IV SCH ×6 (00:57→21:18)
[2022-10-07 06:06] LABS: Basophils # (auto) 0 10 ^3/uL (0-0.2); Eosinophils # (auto) 0.1 10 ^3/uL (0-0.8); Hemoglobin 11.7 g/dL (12.2-16.2); Lymphocytes # (auto) 0.5 10 ^3/uL (0.4-5.4); Mean Corpuscular Hemoglobin 28.6 pg (28.0-32.0); Mean Corpuscular Hgb Conc. 33.2 g/dL (32.0-36.0); Monocytes % (auto) 7.5 % (0.0-12.0); Nucleated Red Blood Cells % 0.1 %
[2022-10-07] MEDS ORDERED: ALBUTEROL MEDNEB 2.5 mg/3ml NEB ONE ×3 (06:07→18:30)
[2022-10-07 06:08] LABS: Basophils % (auto) 0.2 % (0.0-2.0); Eosinophils % (auto) 1.1 % (0.0-7.0); Hematocrit 35.1 % (36.0-46.0); Lymphocytes % (auto) 5.9 % (10.0-50.0); Monocytes # (auto) 0.6 10 ^3/uL (0-1.3); Neutrophils # (auto) 7.3 10 ^3/uL (1.6-8.6); Neutrophils % (auto) 85.3 % (37.0-80.0); Red Blood Cells 4.09 10^6/uL (4.0-5.20); Red Cell Distribution Width 16.7 % (11.8-14.3); White Blood Cell 8.5 10^3/uL (4.4-10.8)
[2022-10-07] MEDS: IPRATROPIUM BROM 0.5 MG/2.5ML INH SOL NEB SCH ×3 (06:22→19:55)
[2022-10-07] MEDS: BUDESONIDE (INHALATION) 0.5 MG/2 ML NEB NEB SCH ×2 (06:22→19:55)
[2022-10-07] MEDS: ALBUTEROL SULF 2.5 MG/0.5ML(0.5%) NEB SOLN NEB SCH ×3 (06:22→19:55)
[2022-10-07 06:30] LABS: Potassium 4.6 mmol/L (3.5-5.1)
[2022-10-07 06:33] LABS: BUN/Creatinine Ratio 62.4; Calcium 8.2 mg/dL (8.5-10.1)
[2022-10-07] MEDS: InsuLIN REG 1unit/0.01ml Soln (100units/ml) SC SCH ×4 (07:00→22:00)
[2022-10-07] MEDS: ACCU-CHEK COMFORT CURVE STRIP VI SCH ×4 (07:00→23:19)
[2022-10-07] MEDS: OCTREOTIDE ACETATE 100 MCG/ML VL SUBCUT SCH ×3 (08:13→23:19)
[2022-10-07] MEDS: GABAPENTIN 300 MG CAP PO SCH ×3 (08:14→23:16)
[2022-10-07] MEDS: CALCIUM ACETATE 667 MG CAP PO SCH ×3 (08:27→17:31)
[2022-10-07] MEDS: PANTOPRAZOLE 40 MG/10 ML VIAL INJ IV SCH (10:16)
[2022-10-07] MEDS: LACTULOSE 20Gm/30ML SOLN PO SCH ×2 (10:16→22:00)
[2022-10-07] MEDS: MONTELUKAST SODIUM 10 MG TAB PO SCH (10:16)
[2022-10-07] MEDS: ASPirin 81 mg TAB PO SCH (10:16)
[2022-10-07] MEDS: INSULIN LANTUS (GLARGINE) 1 /0.01ml (100units/ml) SC SCH ×2 (10:19→23:44)
[2022-10-07] MEDS: CEFTRIAXONE SODIUM 2 GM in D5W 5% 50 ML IV SCH (10:43)
[2022-10-07] MEDS ORDERED: GLYCOPYRROLATE 0.2 MG/ML 1ML VIAL IV ONE (16:15)
[2022-10-07] MEDS: ACETYLCYSTEINE 20%(200MG/ML) SOL 4ML NEB SCH (19:56)
[2022-10-07] MEDS ORDERED: ACETYLCYSTEINE 20%(200MG/ML) SOL 4ML NEB SCH (22:00)
[2022-10-07] MEDS: ATORVASTATIN 20 MG TAB PO SCH (23:17)
[2022-10-08] VITALS (29 sets, daily range): BP systolic 118–142; BP diastolic 55–79
[2022-10-08] MEDS: FUROSEMIDE INJECTION 100 MG in D5W 5% 100 ML IV SCH ×2 (03:11→08:43)
[2022-10-08 05:23] LABS: Basophils # (auto) 0 10 ^3/uL (0-0.2); Basophils % (auto) 0.4 % (0.0-2.0); Eosinophils # (auto) 0.1 10 ^3/uL (0-0.8); Eosinophils % (auto) 1.3 % (0.0-7.0); Hemoglobin 11.9 g/dL (12.2-16.2); Lymphocytes # (auto) 0.6 10 ^3/uL (0.4-5.4); Lymphocytes % (auto) 6.4 % (10.0-50.0); Mean Corpuscular Hemoglobin 28.4 pg (28.0-32.0); Mean Corpuscular Hgb Conc. 32.9 g/dL (32.0-36.0); Mean Corpuscular Volume 86.4 fL (80.0-100.0); Monocytes # (auto) 0.8 10 ^3/uL (0-1.3); Monocytes % (auto) 7.8 % (0.0-12.0); Neutrophils # (auto) 8.4 10 ^3/uL (1.6-8.6); Neutrophils % (auto) 84.1 % (37.0-80.0); Nucleated Red Blood Cells % 0.1 %; Red Blood Cells 4.17 10^6/uL (4.0-5.20); Red Cell Distribution Width 16.5 % (11.8-14.3)
[2022-10-08] MEDS ORDERED: ALBUTEROL MEDNEB 2.5 mg/3ml NEB ONE ×4 (05:30→22:05)
[2022-10-08 05:37] LABS: Calcium 8.4 mg/dL (8.5-10.1); Potassium 4.8 mmol/L (3.5-5.1)
[2022-10-08 05:40] LABS: BUN/Creatinine Ratio 59.9; Bilirubin, Total 3.2 mg/dL (0.2-1.0); Total Protein 5.8 g/dL (6.4-8.2)
[2022-10-08] MEDS: GABAPENTIN 300 MG CAP PO SCH ×2 (06:00→14:44)
[2022-10-08] MEDS: OCTREOTIDE ACETATE 100 MCG/ML VL SUBCUT SCH ×3 (06:00→22:00)
[2022-10-08] MEDS: ACCU-CHEK COMFORT CURVE STRIP VI SCH ×4 (07:00→22:00)
[2022-10-08] MEDS: InsuLIN REG 1unit/0.01ml Soln (100units/ml) SC SCH ×4 (07:00→22:00)
[2022-10-08] MEDS: ALBUTEROL SULF 2.5 MG/0.5ML(0.5%) NEB SOLN NEB SCH ×3 (09:16→18:04)
[2022-10-08] MEDS: IPRATROPIUM BROM 0.5 MG/2.5ML INH SOL NEB SCH ×3 (09:16→18:04)
[2022-10-08] MEDS: ACETYLCYSTEINE 20%(200MG/ML) SOL 4ML NEB SCH ×3 (09:17→22:12)
[2022-10-08] MEDS: BUDESONIDE (INHALATION) 0.5 MG/2 ML NEB NEB SCH ×2 (09:17→18:04)
[2022-10-08] MEDS ORDERED: cefTRIAXone 1GM/50ML D5W 50 ML IV ONE (09:54)
[2022-10-08] MEDS: LACTULOSE 20Gm/30ML SOLN PO SCH ×2 (10:00→22:00)
[2022-10-08] MEDS: PANTOPRAZOLE 40 MG/10 ML VIAL INJ IV SCH (10:00)
[2022-10-08] MEDS: MONTELUKAST SODIUM 10 MG TAB PO SCH (10:02)
[2022-10-08] MEDS: ASPirin 81 mg TAB PO SCH (10:02)
[2022-10-08] MEDS: CALCIUM ACETATE 667 MG CAP PO SCH ×3 (10:03→18:00)
[2022-10-08] MEDS: CEFTRIAXONE SODIUM 2 GM in D5W 5% 50 ML IV SCH (10:07)
[2022-10-08] MEDS: INSULIN LANTUS (GLARGINE) 1 /0.01ml (100units/ml) SC SCH ×2 (10:10→22:00)
[2022-10-08] MEDS ORDERED: metOLazone 5 MG TAB PO ONE (12:00)
[2022-10-08] MEDS ORDERED: SPIRONOLACTONE 25 MG TAB PO ONE (13:30)
[2022-10-08] MEDS: ALBUMIN 25% 50 ML IV SCH ×2 (14:41→20:00)
[2022-10-08] MEDS: BUMETANIDE INJECTION 25 MG in GIVE UN-DILUTED 0 ML IV SCH (14:43)
[2022-10-09] VITALS (45 sets, daily range): BP systolic 88–148; BP diastolic 46–74
[2022-10-09] MEDS: GABAPENTIN 300 MG CAP PO SCH ×2 (00:20→06:00)
[2022-10-09] MEDS: ATORVASTATIN 20 MG TAB PO SCH (00:21)
[2022-10-09] MEDS: ALBUMIN 25% 50 ML IV SCH (04:28)
[2022-10-09] MEDS: OCTREOTIDE ACETATE 100 MCG/ML VL SUBCUT SCH ×3 (06:00→22:30)
[2022-10-09] MEDS ORDERED: ALBUTEROL MEDNEB 2.5 mg/3ml NEB ONE (06:13)
[2022-10-09] MEDS: ACETYLCYSTEINE 20%(200MG/ML) SOL 4ML NEB SCH ×2 (06:23→22:25)
[2022-10-09] MEDS: IPRATROPIUM BROM 0.5 MG/2.5ML INH SOL NEB SCH ×3 (06:23→20:37)
[2022-10-09] MEDS: ALBUTEROL SULF 2.5 MG/0.5ML(0.5%) NEB SOLN NEB SCH (06:23)
[2022-10-09] MEDS: BUDESONIDE (INHALATION) 0.5 MG/2 ML NEB NEB SCH ×2 (06:23→22:25)
[2022-10-09] MEDS: ACCU-CHEK COMFORT CURVE STRIP VI SCH ×3 (07:00→22:30)
[2022-10-09 08:23] LABS: Red Cell Distribution Width 16.7 % (11.8-14.3); White Blood Cell 7.2 10^3/uL (4.4-10.8)
[2022-10-09 08:27] LABS: Hematocrit 33.7 % (36.0-46.0); Hemoglobin 11.3 g/dL (12.2-16.2); Mean Corpuscular Hemoglobin 28.6 pg (28.0-32.0); Mean Corpuscular Hgb Conc. 33.5 g/dL (32.0-36.0); Mean Corpuscular Volume 85.3 fL (80.0-100.0); Red Blood Cells 3.96 10^6/uL (4.0-5.20)
[2022-10-09 08:41] LABS: INR 1.32 (0.9-1.15)
[2022-10-09 08:42] LABS: Basophils % (manual) 0 (0.0-2.0); Blast Cells 0; Eosinophils % (manual) 0 (0-7); Metamyelocytes % 0; Myelocytes % 0; Promyelocytes % 0; Reactive Lymphocytes 0
[2022-10-09 08:54] LABS: Albumin 2.1 g/dL (3.4-5.0); Calcium 8.5 mg/dL (8.5-10.1); Potassium 5.2 mmol/L (3.5-5.1)
[2022-10-09 08:58] LABS: Bilirubin, Total 4.8 mg/dL (0.2-1.0); Total Protein 5.8 g/dL (6.4-8.2)
[2022-10-09 09:01] LABS: BUN/Creatinine Ratio 71.2
[2022-10-09] MEDS: CALCIUM ACETATE 667 MG CAP PO SCH ×3 (09:25→19:30)
[2022-10-09] MEDS: ASPirin 81 mg TAB PO SCH (09:54)
[2022-10-09] MEDS: InsuLIN REG 1unit/0.01ml Soln (100units/ml) SC SCH ×3 (09:55→22:00)
[2022-10-09] MEDS: LACTULOSE 20Gm/30ML SOLN PO SCH ×2 (09:55→22:00)
[2022-10-09] MEDS ORDERED: SPIRONOLACTONE 25 MG TAB PO SCH (10:00)
[2022-10-09] MEDS: CEFTRIAXONE SODIUM 2 GM in D5W 5% 50 ML IV SCH (10:00)
[2022-10-09] MEDS: MONTELUKAST SODIUM 10 MG TAB PO SCH (10:38)
[2022-10-09] MEDS: PANTOPRAZOLE 40 MG/10 ML VIAL INJ IV SCH (10:38)
[2022-10-09] MEDS: metOLazone 5 MG TAB PO SCH (10:39)
[2022-10-09] MEDS ORDERED: ALBUTEROL MEDNEB 2.5 mg/3ml NEB NEB PRN (11:45)
[2022-10-09] MEDS ORDERED: SODIUM CHLORIDE LOCK 20 ML ONE (11:49)
[2022-10-09] MEDS ORDERED: GLYCOPYRROLATE 0.2 MG/ML 1ML VIAL ONE (11:49)
[2022-10-09] MEDS ORDERED: PROPOFOL 10 MG/ML 20 ML IV ONE (11:49)
[2022-10-09] MEDS ORDERED: DexAMETHasone SOD PHOS 10MG/1ML VIAL INJ ONE (11:49)
[2022-10-09] MEDS ORDERED: ONDANSETRON HCL 4 MG/2 ML VIAL ONE (11:49)
[2022-10-09] MEDS ORDERED: PHENYLEPHRINE HCL 10 MG/ML VL ONE (11:49)
[2022-10-09] MEDS ORDERED: ROCURONIUM 10MG/ML 10ML VIAL IV ONE (11:51)
[2022-10-09] MEDS ORDERED: TRANEXAMIC ACID 20 ML ONE (11:57)
[2022-10-09] MEDS ORDERED: BUPIVACAINE 0.25% INJ 50ML VIAL ONE (11:57)
[2022-10-09] MEDS ORDERED: KETOROLAC TROMETH 30 MG/ML 1ML VIAL ONE (11:59)
[2022-10-09] MEDS ORDERED: VANCOMYCIN HCL 1000 MG VL ONE (11:59)
[2022-10-09] MEDS: ALBUTEROL MEDNEB 2.5 mg/3ml NEB NEB SCH ×3 (12:00→22:25)
[2022-10-09] MEDS: BUMETANIDE INJECTION 25 MG in GIVE UN-DILUTED 0 ML IV SCH (12:00)
[2022-10-09] MEDS ORDERED: MORPHINE SULF PF 5 MG/10 ML VIAL ONE (12:04)
[2022-10-09] MEDS ORDERED: GENTAMICIN SULF 80 MG/2 ML VIAL ONE (13:33)
[2022-10-09] MEDS ORDERED: CLINDAMYCIN 600MG IV 50 ML IV ONE (13:34)
[2022-10-09 13:43] LABS: Basophils # (auto) 0 10 ^3/uL (0-0.2); Eosinophils # (auto) 0.1 10 ^3/uL (0-0.8); Eosinophils % (auto) 1.4 % (0.0-7.0); Lymphocytes # (auto) 0.5 10 ^3/uL (0.4-5.4); Nucleated Red Blood Cells % 0.1 %; Red Cell Distribution Width 16.7 % (11.8-14.3)
[2022-10-09 13:45] LABS: Basophils % (auto) 0.2 % (0.0-2.0); Hematocrit 33.2 % (36.0-46.0); Hemoglobin 10.8 g/dL (12.2-16.2); Lymphocytes % (auto) 6.3 % (10.0-50.0); Mean Corpuscular Hgb Conc. 32.5 g/dL (32.0-36.0); Monocytes # (auto) 0.6 10 ^3/uL (0-1.3); Monocytes % (auto) 7.8 % (0.0-12.0); Neutrophils # (auto) 6.9 10 ^3/uL (1.6-8.6); Neutrophils % (auto) 84.3 % (37.0-80.0); Red Blood Cells 3.86 10^6/uL (4.0-5.20); White Blood Cell 8.2 10^3/uL (4.4-10.8)
[2022-10-09 13:45] LABS: Band Neutrophils % (manual) 5; Lymphocytes % (manual) 6 (10.0-50.0); Monocytes % (manual) 8 (0-12)
[2022-10-09 14:24] LABS: INR 1.31 (0.9-1.15)
[2022-10-09] MEDS ORDERED: ePHEDrine SULFATE 50 MG/ML AMP ONE ×2 (14:53→15:37)
[2022-10-09] MEDS: VANCOMYCIN HCL 1000 MG VL ONE ×5 (15:00→20:43)
[2022-10-09] MEDS ORDERED: NOREPINEPHRINE 8 MG/250ML KIT 250 ML IV ONE (16:07)
[2022-10-09] MEDS ORDERED: EPINEPHrine HCL 1 MG/10 ML SYRG ONE (16:48)
[2022-10-09] MEDS ORDERED: HYDROCORTISONE SOD SUCC 100 MG/2ML INJ VIAL ONE (16:48)
[2022-10-09] MEDS: EPINEPHrine HCL 0.5 ML NEB ONE ×2 (17:00→17:14)
[2022-10-09] MEDS ORDERED: EPINEPHrine HCL 0.5 ML NEB NEB ONE (17:00)
[2022-10-09] MEDS: PROPOFOL 100 ML IV SCH (19:00)
[2022-10-09] MEDS ORDERED: NOREPINEPHRINE 8 MG/250ML KIT 250 ML IV SCH (21:00)
[2022-10-09] MEDS: INSULIN LANTUS (GLARGINE) 1 /0.01ml (100units/ml) SC SCH (22:00)
[2022-10-10] VITALS (107 sets, daily range): BP systolic 81–194; BP diastolic 32–102
[2022-10-10] MEDS: PHENYLEPHRINE INJ 80 MG in SODIUM CHL 0.9% 242 ML IV SCH ×2
[2022-10-10] MEDS: fentaNYL Drip 2500mCg/250mlNS 250 ML IV SCH ×2 (00:42→14:30)
[2022-10-10 03:53] LABS: Basophils # (auto) 0 10 ^3/uL (0-0.2); Basophils % (auto) 0.3 % (0.0-2.0); Eosinophils # (auto) 0 10 ^3/uL (0-0.8); Hematocrit 28.2 % (36.0-46.0); Lymphocytes # (auto) 0.6 10 ^3/uL (0.4-5.4); Lymphocytes % (auto) 4.1 % (10.0-50.0); Mean Corpuscular Hemoglobin 27.5 pg (28.0-32.0); Mean Corpuscular Volume 85.8 fL (80.0-100.0); Monocytes # (auto) 0.8 10 ^3/uL (0-1.3); Monocytes % (auto) 5.6 % (0.0-12.0); Neutrophils # (auto) 13.1 10 ^3/uL (1.6-8.6); Nucleated Red Blood Cells % 0.3 %; Red Blood Cells 3.29 10^6/uL (4.0-5.20); Red Cell Distribution Width 17.1 % (11.8-14.3); White Blood Cell 14.6 10^3/uL (4.4-10.8)
[2022-10-10 04:18] LABS: INR 1.51 (0.9-1.15); Partial Thromboplastin Time 39.3 sec (24.6-33.4)
[2022-10-10] MEDS: IPRATROPIUM BROM 0.5 MG/2.5ML INH SOL NEB SCH ×3 (05:54→18:49)
[2022-10-10] MEDS: ACETYLCYSTEINE 20%(200MG/ML) SOL 4ML NEB SCH (05:56)
[2022-10-10] MEDS: OCTREOTIDE ACETATE 100 MCG/ML VL SUBCUT SCH ×3 (06:00→21:58)
[2022-10-10] MEDS: ACCU-CHEK COMFORT CURVE STRIP VI SCH ×3 (07:10→19:51)
[2022-10-10] MEDS: InsuLIN REG 1unit/0.01ml Soln (100units/ml) SC SCH ×3 (07:15→19:51)
[2022-10-10] MEDS: CALCIUM ACETATE 667 MG CAP PO SCH ×3 (08:00→18:00)
[2022-10-10] MEDS: NOREPINEPHRINE BITARTRATE 16 MG in SODIUM CHL 0.9% 234 ML IV SCH ×4 (09:30→20:40)
[2022-10-10] MEDS ORDERED: PHENYLEPHRINE IV 250 ML IV ONE (09:51)
[2022-10-10] MEDS: BUDESONIDE (INHALATION) 0.5 MG/2 ML NEB NEB SCH ×2 (10:21→18:49)
[2022-10-10] MEDS: PROPOFOL 100 ML IV SCH ×2 (11:00→19:00)
[2022-10-10] MEDS: PANTOPRAZOLE 40 MG/10 ML VIAL INJ IV SCH (11:06)
[2022-10-10] MEDS: CEFTRIAXONE SODIUM 2 GM in D5W 5% 50 ML IV SCH (11:06)
[2022-10-10] MEDS: INSULIN LANTUS (GLARGINE) 1 /0.01ml (100units/ml) SC SCH (11:34)
[2022-10-10] MEDS: metOLazone 5 MG TAB PO SCH (11:34)
[2022-10-10] MEDS: LACTULOSE 20Gm/30ML SOLN PO SCH (11:34)
[2022-10-10] MEDS: MIDAZOLAM DRIP 50 mg/50mL 50 ML IV SCH ×2 (13:06→22:30)
[2022-10-10] MEDS ORDERED: ALBUMIN 25% 50 ML IV SCH (13:30)
[2022-10-10] MEDS ORDERED: BUMETANIDE INJECTION 25 MG in GIVE UN-DILUTED 0 ML IV SCH (13:30)
[2022-10-10] MEDS: ALBUTEROL MEDNEB 2.5 mg/3ml NEB NEB SCH ×2 (13:31→18:00)
[2022-10-10] MEDS ORDERED: DEXTROSE (50%) 50ML SYRG IV PRN (14:00)
[2022-10-10] MEDS ORDERED: VANCOMYCIN PER PHARMACY 0 MG IV SCH (14:00)
[2022-10-10] MEDS: VASOPRESSIN 20 UNITS in SODIUM CHL 0.9% 99 ML IV SCH (14:06)
[2022-10-10] MEDS: PHENYLEPHRINE INJ 40 MG in SODIUM CHL 0.9% 246 ML IV SCH ×4 (14:07→20:40)
[2022-10-10] MEDS ORDERED: HYDROCORTISONE SOD SUCC 100 MG/2ML INJ VIAL IV STA (14:57)
[2022-10-10] MEDS: DOPamine 1600MCG/ML D5W 250 ML IV SCH (15:30)
[2022-10-10 15:38] LABS: Anion Gap 15 (5-15); Carbon Dioxide 20 mmol/L (21-32); Chloride 94 mmol/L (98-107); Glucose 115 mg/dL (74-106); Sodium 129 mmol/L (136-145)
[2022-10-10 15:39] LABS: Alanine Aminotransferase 308 U/L (13-56); Alkaline Phosphatase 415 U/L (45-117); Aspartate Aminotransferase 1614 U/L (15-37); BUN/Creatinine Ratio 41.4; GFR African American 22 mL/min; GFR Non-African American 19 mL/min
[2022-10-10 15:40] LABS: Bilirubin, Total 6.1 mg/dL (0.2-1.0); Calcium 7.8 mg/dL (8.5-10.1); Total Protein 5.5 g/dL (6.4-8.2)
[2022-10-10 15:44] LABS: Blood Urea Nitrogen 116 mg/dL (7-18)
[2022-10-10 15:45] LABS: Potassium 7.4 mmol/L (3.5-5.1)
[2022-10-10] MEDS ORDERED: CALCIUM GLUC 1,000mg/50ml-NS 50 ML IV ONE ×3 (16:00→23:15)
[2022-10-10] MEDS ORDERED: ALBUTEROL SULF 2.5 MG/0.5ML(0.5%) NEB SOLN NEB ONE (16:00)
[2022-10-10] MEDS ORDERED: LIDOCAINE 1% (LOCAL ANESTH.) PF 5ml SDV ID ONE (16:00)
[2022-10-10] MEDS ORDERED: DEXTROSE (50%) 50ML SYRG IV ONE ×3 (16:00→23:15)
[2022-10-10] MEDS ORDERED: InsuLIN REG 1unit/0.01ml Soln (100units/ml) IV ONE ×3 (16:00→23:15)
[2022-10-10] MEDS: SODIUM BICARBONATE 50ML VIAL 150 ML in D5W 5% 1,000 ML IV SCH (16:48)
[2022-10-10] MEDS: VANCOMYCIN 1GM/250ML 250 ML IV SCH (18:10)
[2022-10-10 19:19] LABS: Albumin 1.8 g/dL (3.4-5.0); Calcium 7.6 mg/dL (8.5-10.1)
[2022-10-10 19:36] LABS: BUN/Creatinine Ratio 41.5; Total Protein 5.4 g/dL (6.4-8.2)
[2022-10-10 19:46] LABS: Potassium 7.2 mmol/L (3.5-5.1)
[2022-10-10] MEDS ORDERED: SODIUM BICARBONATE 8.4 % INJ 50ML VIAL IV ONE (20:00)
[2022-10-10] MEDS ORDERED: SODIUM ZIRCONIUM CYCL 10 GM PAK PO ONE ×2 (20:15→23:15)
[2022-10-10] MEDS ORDERED: NOREPINEPHRINE BITARTRATE 32 MG in SODIUM CHL 0.9% 218 ML IV SCH (20:45)
[2022-10-10] MEDS: SODIUM CHLOR 0.9% PF (SALINE LOCK) 10ML VIAL/SYR IV SCH (21:18)
[2022-10-10] MEDS: HYDROCORTISONE SOD SUCC 100 MG/2ML INJ VIAL IV SCH (21:57)
[2022-10-10] MEDS: PIPERACILLIN-TAZOB 3.375GM 100 ML IV SCH (21:58)
[2022-10-10] MEDS ORDERED: INSULIN LANTUS (GLARGINE) 1 /0.01ml (100units/ml) SC SCH (22:00)
[2022-10-10 22:43] LABS: BUN/Creatinine Ratio 37.6; Calcium 7.4 mg/dL (8.5-10.1)
[2022-10-10 22:45] LABS: Potassium 6.9 mmol/L (3.5-5.1)
[2022-10-11] VITALS (104 sets, daily range): BP systolic 70–118; BP diastolic 51–61
[2022-10-11] MEDS: PHENYLEPHRINE INJ 80 MG in SODIUM CHL 0.9% 242 ML IV SCH ×2
[2022-10-11] MEDS: ACCU-CHEK COMFORT CURVE STRIP VI SCH ×5 (00:01→23:17)
[2022-10-11] MEDS: DOPamine 1600MCG/ML D5W 250 ML IV SCH ×3 (00:03→17:09)
[2022-10-11] MEDS: InsuLIN REG 1unit/0.01ml Soln (100units/ml) SC SCH ×5 (00:06→23:20)
[2022-10-11] MEDS: VASOPRESSIN 20 UNITS in SODIUM CHL 0.9% 99 ML IV SCH ×2 (00:52→08:00)
[2022-10-11] MEDS: fentaNYL Drip 2500mCg/250mlNS 250 ML IV SCH (03:00)
[2022-10-11 03:37] LABS: Hemoglobin 8.2 g/dL (12.2-16.2)
[2022-10-11 03:41] LABS: Hematocrit 25.4 % (36.0-46.0); Mean Corpuscular Hemoglobin 27.9 pg (28.0-32.0); Mean Corpuscular Hgb Conc. 32.2 g/dL (32.0-36.0); Mean Corpuscular Volume 86.4 fL (80.0-100.0); Red Blood Cells 2.94 10^6/uL (4.0-5.20); Red Cell Distribution Width 17.2 % (11.8-14.3); White Blood Cell 21.1 10^3/uL (4.4-10.8)
[2022-10-11] MEDS: SODIUM BICARBONATE 50ML VIAL 150 ML in D5W 5% 1,000 ML IV SCH (03:52)
[2022-10-11] MEDS: VANCOMYCIN 1GM/250ML 250 ML IV SCH ×2 (03:53→16:20)
[2022-10-11 03:55] LABS: INR 2.45 (0.9-1.15); Partial Thromboplastin Time 47.6 sec (24.6-33.4)
[2022-10-11 03:58] LABS: Basophils % (manual) 0 (0.0-2.0); Blast Cells 0; Eosinophils % (manual) 0 (0-7); Metamyelocytes % 0; Promyelocytes % 0; Reactive Lymphocytes 0
[2022-10-11 04:01] LABS: Calcium 6.4 mg/dL (8.5-10.1)
[2022-10-11 04:20] LABS: Albumin 1.4 g/dL (3.4-5.0); BUN/Creatinine Ratio 40.8; Total Protein 4.5 g/dL (6.4-8.2)
[2022-10-11 04:23] LABS: Potassium 6.1 mmol/L (3.5-5.1)
[2022-10-11 04:56] LABS: Band Neutrophils % (manual) 19; Lymphocytes % (manual) 9 (10.0-50.0); Monocytes % (manual) 7 (0-12); Myelocytes % 5
[2022-10-11] MEDS: MIDAZOLAM DRIP 50 mg/50mL 50 ML IV SCH ×2 (06:00→16:54)
[2022-10-11] MEDS: OCTREOTIDE ACETATE 100 MCG/ML VL SUBCUT SCH (06:11)
[2022-10-11] MEDS: PIPERACILLIN-TAZOB 3.375GM 100 ML IV SCH (06:11)
[2022-10-11] MEDS: IPRATROPIUM BROM 0.5 MG/2.5ML INH SOL NEB SCH ×3 (06:17→18:11)
[2022-10-11] MEDS: ALBUTEROL MEDNEB 2.5 mg/3ml NEB NEB SCH ×3 (06:18→18:11)
[2022-10-11] MEDS: BUDESONIDE (INHALATION) 0.5 MG/2 ML NEB NEB SCH (06:18)
[2022-10-11] MEDS: CALCIUM ACETATE 667 MG CAP PO SCH (08:00)
[2022-10-11] MEDS ORDERED: DEXTROSE (50%) 50ML SYRG IV ONE (09:30)
[2022-10-11] MEDS ORDERED: ALBUTEROL SULF 2.5 MG/0.5ML(0.5%) NEB SOLN NEB ONE (09:30)
[2022-10-11] MEDS ORDERED: CALCIUM GLUC 1,000mg/50ml-NS 50 ML IV ONE (09:30)
[2022-10-11] MEDS ORDERED: InsuLIN REG 1unit/0.01ml Soln (100units/ml) IV ONE (09:30)
[2022-10-11] MEDS: PANTOPRAZOLE 40 MG/10 ML VIAL INJ IV SCH (10:04)
[2022-10-11] MEDS: HYDROCORTISONE SOD SUCC 100 MG/2ML INJ VIAL IV SCH ×2 (10:05→23:04)
[2022-10-11] MEDS: SODIUM CHLOR 0.9% PF (SALINE LOCK) 10ML VIAL/SYR IV SCH ×2 (10:09→22:00)
[2022-10-11] MEDS ORDERED: INSULIN LANTUS (GLARGINE) 1 /0.01ml (100units/ml) SC ONE (11:30)
[2022-10-11] MEDS ORDERED: PHYTONADIONE (VIT K)10 MG/ML 1ML VIAL SUBCUT ONE (11:30)
[2022-10-11] MEDS ORDERED: ALBUMIN 25% 50 ML IV PRN (12:00)
[2022-10-11] MEDS ORDERED: SODIUM CHL 0.9% 1000 ML BAG XX ONE (12:15)
[2022-10-11] MEDS: ALBUMIN 25% 100 ML IV SCH ×2 (13:30→14:00)
[2022-10-11 15:19] LABS: % Iron Saturation 96.5 % (15-50)
[2022-10-11] MEDS: MEROPENEM 2 GM in SODIUM CHL 0.9% 250 ML IV SCH (15:39)
[2022-10-11] MEDS: EPINEPHrine HCL 250 ML IV SCH (16:04)
[2022-10-11] MEDS: INSULIN LANTUS (GLARGINE) 1 /0.01ml (100units/ml) SC SCH (23:10)
[2022-10-11 23:43] LABS: Hemoglobin 9.3 g/dL (12.2-16.2); Mean Corpuscular Hemoglobin 27.9 pg (28.0-32.0); Mean Corpuscular Hgb Conc. 29.9 g/dL (32.0-36.0); Mean Corpuscular Volume 93.2 fL (80.0-100.0); Red Blood Cells 3.33 10^6/uL (4.0-5.20); Red Cell Distribution Width 18.4 % (11.8-14.3); White Blood Cell 28.3 10^3/uL (4.4-10.8)
[2022-10-11 23:44] LABS: Basophils % (manual) 0 (0.0-2.0); Blast Cells 0; Metamyelocytes % 0; Promyelocytes % 0; Reactive Lymphocytes 0
[2022-10-11 23:59] LABS: Lactic Acid w/Reflex 8.9 mmol/L (0.4-2.0)
[2022-10-12] VITALS (68 sets, daily range): BP systolic 37–170; BP diastolic 27–62
[2022-10-12 00:19] LABS: Band Neutrophils % (manual) 22; Eosinophils % (manual) 1 (0-7); Lymphocytes % (manual) 11 (10.0-50.0); Monocytes % (manual) 11 (0-12); Myelocytes % 2
[2022-10-12 00:37] LABS: Albumin 1.9 g/dL (3.4-5.0); BUN/Creatinine Ratio 30.4; Calcium 6.4 mg/dL (8.5-10.1)
[2022-10-12 00:45] LABS: Potassium 7.2 mmol/L (3.5-5.1)
[2022-10-12 00:53] LABS: Bilirubin, Total 9.3 mg/dL (0.2-1.0); Total Protein 5.3 g/dL (6.4-8.2)
[2022-10-12] MEDS: DOPamine 1600MCG/ML D5W 250 ML IV SCH ×6 (01:35→12:28)
[2022-10-12] MEDS: MEROPENEM 2 GM in SODIUM CHL 0.9% 250 ML IV SCH (01:36)
[2022-10-12] MEDS: VASOPRESSIN 20 UNITS in SODIUM CHL 0.9% 99 ML IV SCH (01:36)
[2022-10-12] MEDS ORDERED: CALCIUM GLUC 1,000mg/50ml-NS 50 ML IV ONE ×2 (03:00→03:21)
[2022-10-12] MEDS ORDERED: SODIUM BICARBONATE 8.4 % INJ 50ML VIAL IV ONE ×2 (03:00→11:45)
[2022-10-12] MEDS ORDERED: InsuLIN REG 1unit/0.01ml Soln (100units/ml) IV ONE (03:00)
[2022-10-12] MEDS ORDERED: DEXTROSE (50%) 50ML SYRG IV ONE (03:00)
[2022-10-12] MEDS ORDERED: SODIUM BICARBONATE 8.4% INJ 50ML SYRINGE ONE (03:21)
[2022-10-12] MEDS ORDERED: DEXTROSE 50% SYRINGE 50 ML IV ONE (03:21)
[2022-10-12 03:55] LABS: Albumin 1.7 g/dL (3.4-5.0); BUN/Creatinine Ratio 29.1
[2022-10-12] MEDS: VANCOMYCIN 1GM/250ML 250 ML IV SCH (04:00)
[2022-10-12 04:03] LABS: Bilirubin, Total 8.3 mg/dL (0.2-1.0); Potassium 7.2 mmol/L (3.5-5.1); Total Protein 4.9 g/dL (6.4-8.2)
[2022-10-12] MEDS ORDERED: PHENYLEPHRINE HCL 10 MG/ML VL ONE (04:52)
[2022-10-12] MEDS ORDERED: PHENYLEPHRINE IV 250 ML IV ONE (04:52)
[2022-10-12] MEDS: ALBUMIN 25% 100 ML IV SCH (05:00)
[2022-10-12] MEDS: ACCU-CHEK COMFORT CURVE STRIP VI SCH ×2 (06:07→12:04)
[2022-10-12] MEDS: InsuLIN REG 1unit/0.01ml Soln (100units/ml) SC SCH ×2 (06:10→12:00)
[2022-10-12] MEDS: INSULIN LANTUS (GLARGINE) 1 /0.01ml (100units/ml) SC SCH (06:16)
[2022-10-12 06:25] LABS: Hemoglobin 9.3 g/dL (12.2-16.2); Mean Corpuscular Hemoglobin 28.6 pg (28.0-32.0)
[2022-10-12 06:27] LABS: Hematocrit 29.1 % (36.0-46.0); Mean Corpuscular Hgb Conc. 31.9 g/dL (32.0-36.0); Mean Corpuscular Volume 89.4 fL (80.0-100.0); Red Blood Cells 3.26 10^6/uL (4.0-5.20); Red Cell Distribution Width 17.8 % (11.8-14.3)
[2022-10-12 06:33] LABS: Basophils % (manual) 0 (0.0-2.0); Blast Cells 0; Eosinophils % (manual) 0 (0-7); Metamyelocytes % 0; Promyelocytes % 0; Reactive Lymphocytes 0
[2022-10-12 06:55] LABS: Albumin 2.2 g/dL (3.4-5.0)
[2022-10-12 06:57] LABS: INR 4.5 (0.9-1.15); Partial Thromboplastin Time 77.9 sec (24.6-33.4)
[2022-10-12] MEDS ORDERED: SODIUM CHL 0.9% 1000 ML BAG XX ONE (07:00)
[2022-10-12 07:12] LABS: Bilirubin, Total 8.3 mg/dL (0.2-1.0); Total Protein 4.9 g/dL (6.4-8.2)
[2022-10-12 07:23] LABS: Calcium 5.9 mg/dL (8.5-10.1); Potassium 7.2 mmol/L (3.5-5.1)
[2022-10-12 08:18] LABS: Band Neutrophils % (manual) 31; Lymphocytes % (manual) 8 (10.0-50.0); Monocytes % (manual) 12 (0-12); Myelocytes % 3
[2022-10-12] MEDS: IPRATROPIUM BROM 0.5 MG/2.5ML INH SOL NEB SCH ×2 (08:18→11:05)
[2022-10-12] MEDS: ALBUTEROL MEDNEB 2.5 mg/3ml NEB NEB SCH ×2 (08:18→11:05)
[2022-10-12] MEDS: EPINEPHrine HCL 250 ML IV SCH (08:58)
[2022-10-12] MEDS: PANTOPRAZOLE 40 MG/10 ML VIAL INJ IV SCH (10:22)
[2022-10-12] MEDS: HYDROCORTISONE SOD SUCC 100 MG/2ML INJ VIAL IV SCH (10:22)
[2022-10-12] MEDS: SODIUM CHLOR 0.9% PF (SALINE LOCK) 10ML VIAL/SYR IV SCH (10:24)
[2022-10-12] MEDS: PROPOFOL 100 ML IV SCH (11:18)
[2022-10-12 11:42] LABS: Hepatitis A Ab IgM Negative; Hepatitis B Core IgM Negative
[2022-10-12 11:43] LABS: Hepatitis C Antibody Positive (Negative)
[2022-10-12] MEDS: PHENYLEPHRINE INJ 80 MG in SODIUM CHL 0.9% 242 ML IV SCH (12:04)
[2022-10-12] MEDS ORDERED: EPINEPHrine HCL 1 MG/10 ML SYRG ONE (15:03)
[2022-10-12] MEDS ORDERED: EPOETIN ALFA-EPBX 10,000 UNIT/1ML VIAL SC ONE (21:00)
[2022-10-12] MEDS ORDERED: MEROPENEM 500MG IVPB 50 ML IV SCH (22:00)
[2022-10-15 23:52] LABS: White Blood Cell 32.6 10^3/uL (4.4-10.8)
== END 2022-10-12 22:45 | DRG 710 ==
LOC: ER 09:34 → EDBD 09:34 → TELE 14:09 → TELE-CENTR 22:30 → ICU CENTRL 10-05 13:51 → DOU IN ICU 10-05 14:06 → ICU WEST 10-09 18:43
PROVIDERS: ADMIT Registered Nurse; ATTEND Internal Medicine
PROC: B246ZZ4 Ultrasonography of Right and Left Heart, Transesophageal (ICD-10-PCS; principal; 2022-10-04)
PROC: 05HF33Z Insertion of Infusion Device into Left Cephalic Vein, Percutaneous Approach (ICD-10-PCS; 2022-10-04)
PROC: B54NZZA Ultrasonography of Left Upper Extremity Veins, Guidance (ICD-10-PCS; 2022-10-04)
PROC: 5A09357 Assistance with Respiratory Ventilation, Less than 24 Consecutive Hours, Continuous Positive Airway Pressure (ICD-10-PCS; 2022-10-06)
PROC: 5A09357 Assistance with Respiratory Ventilation, Less than 24 Consecutive Hours, Continuous Positive Airway Pressure (ICD-10-PCS; 2022-10-07)
PROC: 5A09357 Assistance with Respiratory Ventilation, Less than 24 Consecutive Hours, Continuous Positive Airway Pressure (ICD-10-PCS; 2022-10-08)
PROC: 0SPD0JZ Removal of Synthetic Substitute from Left Knee Joint, Open Approach (ICD-10-PCS; 2022-10-09)
PROC: 5A1945Z Respiratory Ventilation, 24-96 Consecutive Hours (ICD-10-PCS; 2022-10-09)
PROC: 30233R1 Transfusion of Nonautologous Platelets into Peripheral Vein, Percutaneous Approach (ICD-10-PCS; 2022-10-09)
PROC: 0BH17EZ Insertion of Endotracheal Airway into Trachea, Via Natural or Artificial Opening (ICD-10-PCS; 2022-10-09)
PROC: 0SRD0EZ Replacement of Left Knee Joint with Articulating Spacer, Open Approach (ICD-10-PCS; 2022-10-09)
PROC: 5A09357 Assistance with Respiratory Ventilation, Less than 24 Consecutive Hours, Continuous Positive Airway Pressure (ICD-10-PCS; 2022-10-09)
PROC: 02HV33Z Insertion of Infusion Device into Superior Vena Cava, Percutaneous Approach (ICD-10-PCS; 2022-10-10)
PROC: B548ZZA Ultrasonography of Superior Vena Cava, Guidance (ICD-10-PCS; 2022-10-10)
PROC: 5A1D70Z Performance of Urinary Filtration, Intermittent, Less than 6 Hours Per Day (ICD-10-PCS; 2022-10-11)
PROC: 02HV33Z Insertion of Infusion Device into Superior Vena Cava, Percutaneous Approach (ICD-10-PCS; 2022-10-11)
PROC: B548ZZA Ultrasonography of Superior Vena Cava, Guidance (ICD-10-PCS; 2022-10-11)
PROC: 5A12012 Performance of Cardiac Output, Single, Manual (ICD-10-PCS; 2022-10-12)
DX: A40.1 Sepsis due to streptococcus, group B (principal); K72.00 Acute and subacute hepatic failure without coma; I33.0 Acute and subacute infective endocarditis; I81 Portal vein thrombosis; N17.0 Acute kidney failure with tubular necrosis; J96.00 Acute respiratory failure, unspecified whether with hypoxia or hypercapnia; J96.01 Acute respiratory failure with hypoxia; E43 Unspecified severe protein-calorie malnutrition; D69.6 Thrombocytopenia, unspecified; E87.1 Hypo-osmolality and hyponatremia; T84.54XA Infection and inflammatory reaction due to internal left knee prosthesis, initial encounter; Z20.822 Contact with and (suspected) exposure to COVID-19; R65.21 Severe sepsis with septic shock; I50.31 Acute diastolic (congestive) heart failure; I31.39 Other pericardial effusion (noninflammatory); K76.6 Portal hypertension; E78.5 Hyperlipidemia, unspecified; J18.9 Pneumonia, unspecified organism; E11.22 Type 2 diabetes mellitus with diabetic chronic kidney disease; E66.01 Morbid (severe) obesity due to excess calories; E88.09 Other disorders of plasma-protein metabolism, not elsewhere classified; F10.129 Alcohol abuse with intoxication, unspecified; G25.81 Restless legs syndrome; G89.29 Other chronic pain; I25.10 Atherosclerotic heart disease of native coronary artery without angina pectoris; I48.91 Unspecified atrial fibrillation; J44.0 Chronic obstructive pulmonary disease with (acute) lower respiratory infection; J90 Pleural effusion, not elsewhere classified; K74.60 Unspecified cirrhosis of liver; N18.2 Chronic kidney disease, stage 2 (mild); R29.6 Repeated falls; S33.5XXA Sprain of ligaments of lumbar spine, initial encounter; S80.02XA Contusion of left knee, initial encounter; B95.5 Unspecified streptococcus as the cause of diseases classified elsewhere; E87.20 Acidosis, unspecified; E87.5 Hyperkalemia; G47.33 Obstructive sleep apnea (adult) (pediatric); G93.1 Anoxic brain damage, not elsewhere classified; I13.0 Hypertensive heart and chronic kidney disease with heart failure and stage 1 through stage 4 chronic kidney disease, or unspecified chronic kidney disease; I34.0 Nonrheumatic mitral (valve) insufficiency; N18.30 Chronic kidney disease, stage 3 unspecified; W18.39XA Other fall on same level, initial encounter; R18.8 Other ascites; Y83.1 Surgical operation with implant of artificial internal device as the cause of abnormal reaction of the patient, or of later complication, without mention of misadventure at the time of the procedure; Z79.4 Long term (current) use of insulin; Z88.8 Allergy status to other drugs, medicaments and biological substances; Z90.49 Acquired absence of other specified parts of digestive tract; Z81.8 Family history of other mental and behavioral disorders; Z82.0 Family history of epilepsy and other diseases of the nervous system; Z82.1 Family history of blindness and visual loss; Z82.49 Family history of ischemic heart disease and other diseases of the circulatory system; Z83.3 Family history of diabetes mellitus; Z85.528 Personal history of other malignant neoplasm of kidney; Z88.1 Allergy status to other antibiotic agents; Z90.5 Acquired absence of kidney; Z90.721 Acquired absence of ovaries, unilateral; Z95.2 Presence of prosthetic heart valve; Y93.89 Activity, other specified; Y92.89 Other specified places as the place of occurrence of the external cause; Y99.8 Other external cause status; I21.A1 Myocardial infarction type 2
CPT/HCPCS: 36415; 36569; 36600; 71045; 71250; 71275; 72131; 73562; 74176; 76700; 80048; 80053; 80061; 80074; 80202; 80307; 81001; 82140; 82247; 82248; 82306; 82570; 82805; 82962; 82977; 83540; 83550; 83605; 83880; 83970; 84100; 84156; 84300; 84439; 84443; 84484; 85007; 85025; 85027; 85379; 85610; 85730; 86704; 86706; 86708; 86803; 86850; 86900; 86901; 87040; 87070; 87075; 87077; 87081; 87086; 87186; 87205; 87340; 87426; 89051; 90935; 92950; 93005; 93306; 93312; 93970; 94002; 94003; 94640; 94660; 96365; 96375; 96379; 99152; C9113; G0378; J0171; J0696; J1100; J1815; J1885; J2185; J2250; J2405; J2543; J2704; J3430; J3490; J7060; P9047